=== PATIENT | male | born 1945 | race Caucasian/White ===

== ENCOUNTER → 2023-12-05 10:42 | Outpatient (REF) | payer OTHER, MEDICARE, SELFPAY ==
[2023-12-05 11:01] LABS: % Basophils 0.5 % (0-2); % Eosinophils 3.3 % (0-6); % Immature Granulocytes 0.3 % (0-0.5); % Lymphocytes 16.2 % (20.5-51.1); % Monocytes 10.6 % (1.7-9.3); % Neutrophils 69.1 % (42.2-75.2); Absolute Eosinophils 0.3 10^3/uL (0-0.7); Absolute Lymphocytes 1.4 10^3/uL (1.2-3.4); Absolute Monocytes 0.9 10^3/uL (0.1-0.6); Hematocrit 40.4 % (39.0-52.0); Hemoglobin 13.5 g/dL (13.0-18.0); Mean Corp Hgb Conc. 33.4 g/dL (33.0-37.0); Mean Corpuscular Volume 86.9 fL (80.0-94.0); Mean Platelet Volume 11.7 fL (7.4-10.4); Nucleated Red Blood Cells % 0 % (-); Platelet Count 322 10^3/uL (130-400); Red Blood Cell Count 4.65 10^6/uL (4.70-6.10); Red Cell Dist. Width 14.6 % (11.5-14.5); White Blood Cell Count 8.7 10^3/uL (4.8-10.8)
[2023-12-05 11:18] LABS: ALT (SGPT) 40 U/L (0-50); AST (SGOT) 39 U/L (17-59); Albumin 3.4 g/dl (3.5-5.0); Alkaline Phosphatase 117 U/L (38-126); Blood Urea Nitrogen 36 mg/dl (9-20); Calcium 9.3 mg/dl (8.4-10.2); Carbon Dioxide 26 mmol/L (22-30); Chloride 102 mmol/L (98-107); Glucose 88 mg/dl (70-99); Sodium 138 mmol/L (135-145); Total Bilirubin 0.7 mg/dl (0.2-1.3); Total Protein 6.3 g/dl (6.3-8.2); eGFR > 60.00
== END ==
LOC: OLABN 10:42
PROVIDERS: ATTENDING PHYSICIAN Student in an Organized Health Care Education/Training Program
DX: S09.90XA Unspecified injury of head, initial encounter (principal)
CPT/HCPCS: 36415; 80053; 83735; 85025

== ENCOUNTER 2023-12-08 16:59 | Emergency (ER) | payer MEDICARE, OTHER, SELFPAY ==
[2023-12-08] VITALS (7 sets, daily range): BP systolic 136–160; BP diastolic 56–87; BMI 25.7
[2023-12-08 17:22] LABS: % Basophils 0.3 % (0-2); % Eosinophils 0.3 % (0-6); % Immature Granulocytes 0.4 % (0-0.5); % Lymphocytes 10.7 % (20.5-51.1); % Neutrophils 80.3 % (42.2-75.2); Absolute Lymphocytes 1.1 10^3/uL (1.2-3.4); Absolute Monocytes 0.8 10^3/uL (0.1-0.6); Absolute Neutrophils 8.2 10^3/uL (1.4-6.5); Hemoglobin 14.6 g/dL (13.0-18.0); Mean Corp Hgb Conc. 34.8 g/dL (33.0-37.0); Mean Corpuscular Hgb 29.1 pg (27.0-31.0); Mean Corpuscular Volume 83.7 fL (80.0-94.0); Mean Platelet Volume 10.7 fL (7.4-10.4); Nucleated Red Blood Cells % 0 % (-); Platelet Count 336 10^3/uL (130-400); Red Blood Cell Count 5.02 10^6/uL (4.70-6.10); Red Cell Dist. Width 14.4 % (11.5-14.5); White Blood Cell Count 10.2 10^3/uL (4.8-10.8)
[2023-12-08 18:05] LABS: ALT (SGPT) 36 U/L (0-50); AST (SGOT) 35 U/L (17-59); Albumin 3.8 g/dl (3.5-5.0); Alkaline Phosphatase 125 U/L (38-126); Blood Urea Nitrogen 35 mg/dl (9-20); Calcium 9.9 mg/dl (8.4-10.2); Carbon Dioxide 24 mmol/L (22-30); Chloride 102 mmol/L (98-107); Estimated Creatinine Clearance 63 ml/min; Glucose 105 mg/dl (70-99); Potassium 5.8 mmol/L (3.5-5.1); Sodium 137 mmol/L (135-145); Total Bilirubin 0.8 mg/dl (0.2-1.3); Total Protein 7.1 g/dl (6.3-8.2); eGFR > 60.00
[2023-12-08 20:34] LABS: Urine Albumin Trace (Neg - Trace); Urine Bilirubin Negative (Negative); Urine Character Clear (Clear); Urine Color Yellow; Urine Glucose Negative (Negative); Urine Ketone 1+ (Negative); Urine Leukocyte Negative (Negative); Urine Nitrite Negative (Negative); Urine Occult Blood Negative (Negative); Urine Specific Gravity 1.015 (<1.030); Urine Urobilinogen Negative (Neg - 1+)
[2023-12-08 20:43] LABS: PT 25.2 Sec (11.4-14.6)
[2023-12-08 20:44] LABS: COVID-19 Antigen Negative (Negative)
[2023-12-08 20:44] LABS: APTT 41.1 Sec (23.4-35.0)
[2023-12-08 21:21] LABS: Blood Urea Nitrogen 34 mg/dl (9-20); Calcium 9.5 mg/dl (8.4-10.2); Carbon Dioxide 26 mmol/L (22-30); Chloride 102 mmol/L (98-107); Estimated Creatinine Clearance 63 ml/min; Glucose 101 mg/dl (70-99); Potassium 5.2 mmol/L (3.5-5.1); Sodium 138 mmol/L (135-145); eGFR > 60.00
--- NOTE | 2023-12-08 21:57 | ED.GENMED ---
History of Present Illness
General
Chief Complaint: Change in Mental Status
Source: records, family and ambulance crew
Time Seen by Provider: 12/08/23 19:47
Travel History
Have you had any contact with someone who has COVID-19?: No
Do you have any symptoms of coronavirus? Fever > 100 degrees, chills, cough, shortness of breath, sore throat, loss of taste or smell, muscle aches, or headache?: No
History of Present Illness
History of Present Illness:
78-year-old male with past medical history of dementia, hypertension, hyperlipidemia, recent accidental fall resulting in a subdural hemorrhage 3 weeks ago where patient was admitted at [facility] for 2 weeks, 1 week ago was
transferred to [facility], family notes today patient seemed to have a change in mental status noting that he was a little less conversive than normal, confused, was not opening his eyes during conversation with family concern for infection or
recurring intracranial bleeding. Family denies any fevers or infectious symptoms, cough, reports of abdominal pain, chest pain or any other concerns. Patient had been on Coumadin previously due to a prosthetic valve but was discontinued off of
this during his hospitalization but had the Coumadin restarted on November 28 and reportedly had an INR earlier this week of greater than 2. Unable to obtain much history from the patient secondary to his baseline dementia.
Past History
Past History
ED Past Medical History: HTN, Hypercholesterolemia and Valvular disease
ED Past Surgical History: Cardiac (St. Kunal's valve surgery)
Social History
Tobacco: Non-smoker
Alcohol: None
Drug: None
Personal:
Living: halfway
Employment: Retired
Phy Exam
Physical Exam
Physical Exam:
GENERAL: Sleepy but easily arousable to voice, will answer most questions but with only a yes or no response
Head: Dressing in place within the mid occipital scalp
EYE: clear conjunctiva
NECK: Supple,
ENT: o/p clr, mmm.
CARDIAC: Regular rate and rhythm with occasional skipped or aberrant beat confirmed with telemetry
LUNGS: Clear breath sounds bilaterally, no acute respiratory distress, no wheezes/rales/rhonchi
ABDOMEN: Soft, without focal tenderness, no r/g, no cvat
NEUROLOGICAL: Alert and oriented to person but not place nor time
SKIN: Warm and dry, skin intact.
MUSCULOSKELETAL: No edema, well perfused.
PSYCH: Normal and appropriate interaction.
Scores
Heart Failure Risk
Heart Failure Risk Score: Not Applicable
Heart Score for Chest Pain Patients
STEMI patient?: Not applicable
Withdrawal Assessment of Alcohol
Withdrawal Assessment Completed?: Not applicable
Course
Orders/Labs/Results
Orders:
Orders
12/08/23 17:10
EKG [Electrocardiogram (*1)] Urgent
Reason for Study: Bradycardia / Tachycardia
12/08/23 17:11
EKG- Treatment ONCE
12/08/23 17:15
CMP [Comprehensive Metabolic Panel] Urgent
Complete Blood Count/With Diff Urgent
PTT Urgent
Prothrombin Time Urgent
12/08/23 19:44
CT Head W/o Iv Contrast Urgent
Comment:
Reason For Exam: Change in mental status, subdural on 11/18
12/08/23 20:06
Straight cath- Treatment ONCE
12/08/23 20:07
CR Chest Portable - 1 View Urgent
Comment:
Reason For Exam: change in mental status
Reason Study Needs to be Portable: Unable to Transport
12/08/23 20:17
COVID-19 Antigen Urgent
Source: Nasal Swab
Influenza A+B Rapid Molecular Urgent
GOGO Source: Nasal Swab
Specimen Description:
12/08/23 20:18
Urinalysis Reflex To Culture Urgent
Date Specimen was Collected: 12/08/23
Time Specimen was Collected: 20:15
12/08/23 21:04
Basic Metabolic Panel Urgent
Abnormal Lab Results
12/08/23 12/08/23 12/08/23
17:15 20:18 21:04
MPV 10.7 H fL
(7.4-10.4)
Absolute Neuts (auto) 8.2 H 10^3/uL
(1.4-6.5)
Absolute Lymphs (auto) 1.1 L 10^3/uL
(1.2-3.4)
Absolute Monos (auto) 0.8 H 10^3/uL
(0.1-0.6)
Neutrophils % 80.3 H %
(42.2-75.2)
Lymphocytes % 10.7 L %
(20.5-51.1)
PT 25.2 H Sec
(11.4-14.6)
APTT 41.1 H Sec
(23.4-35.0)
Potassium 5.8 H mmol/L 5.2 H mmol/L
(3.5-5.1) (3.5-5.1)
BUN 35 H mg/dl 34 H mg/dl
(9-20) (9-20)
Glucose 105 H mg/dl 101 H mg/dl
(70-99) (70-99)
Urine Ketones 1+ A
(Negative)
12/08/23 17:15
12/08/23 21:04
Vital Signs
Initial and Last Documented VS:
Initial Vital Signs
BP
154/65
12/08/23 17:04
Last Documented Vital Signs
Temp Pulse Resp BP Pulse Ox
98.1 F 94 28 155/61 97
12/08/23 19:59 12/08/23 19:00 12/08/23 19:00 12/08/23 19:00 12/08/23 19:00
Director Skills consulted with Physician
Director Skills consulted with physician?: Yes
Name of Physician Consulted: Anthony
MDM/Problems Addressed
Differential Diagnosis Includes:
Recurring intracranial bleed, infectious etiology such as UTI or pneumonia, electrolyte disturbance, dehydration, delirium secondary to dementia/current place of living
MDM/Problems Addressed:
78-year-old male present emergency department for evaluation for reported change in mental status over the last 24 hours by family. Patient does seem to be somewhat conversive here and in no acute distress. Vital signs reassuring. There is no
fever. Given patient recently restarted Coumadin in the setting of recent head trauma and confirmed intracranial bleeding will send for stat CT to rule out worsening head bleed. Labs, urine and chest x-ray ordered. Will attempt to obtain records
from [place] to compare results with today's visit from his discharge
Chronic conditions affecting care: Neurological disorder
Acute Exacerbation and/or Progression of Chronic Illness: Neurological disorder
*Radiology
Radiology exam reviewed: radiology read reviewed
*Pulse Oximetry
Patient hypoxic: no
*EKG
Interpreted by ED Provider?: Yes
Comparison EKG: no changes
Heart Rate: 88
Rate: normal
Rhythm: sinus and PAC's
[place]: normal axis
Ischemia: no ischemia
*Social Services Aide Interpretation
Rate: normal
Rhythm: sinus and PAC's
*Critical Care Note
Total Time (30-74mins, 75-104mins- exclusive of procedures): Not Applicable
Data Reviewed
Review of Other/Old Records Reveals: Labs, Records, Radiology Studies and Discharge Summary
Source: records, family and ambulance crew
Patient Management
Escalation/DeEscalation of care consider admission/obs:
Patient's head CT shows moderate size left high parietal slightly low-attenuation extra-axial fluid collection measuring 1.2 cm likely representing subacute subdural hematoma. This is improved from patient's CT at [place] which showed a 1.4 cm
subdural hematoma in the same location. There is also bifrontal hematomas on that CT when patient was admitted at [place] from initial trauma. Patient's lab work was ultimately reassuring. Initial potassium came back elevated at 5.8 which I
suspect is likely hemolysis given no kidney injury. This was repeated and came back at 5.2. Patient's urine and chest x-ray without signs of infection. Ultimately I suspect a delirium secondary to patient being recently hospitalized as well as
being in a new environment. I reviewed all of these findings with the family and they do feel comfortable with patient going back to [facility] for continued rehab and care.
ED Attending Note
-
Portions of this chart may have been created with voice recognition software.� Occasional wrong word or��sound alike� substitutions may have occurred due to the inherent limitations of voice recognition software.
Discharge Plan
Departure
Patient Disposition: Longterm/SNF
Date of Disposition: 12/08/23
Time of Disposition: 21:57
Patient with high blood pressure during this ER visit?: Yes
Discharge Problem:
Altered mental status
Instructions: Dementia (DC)
Prescriptions:
No Action
metoprolol tartrate 50 MG tablet
50 mg PO BID
acetaminophen [Tylenol] 325 mg Tablet
650 mg PO Q4HPRN PRN (Reason: mild pain)
citalopram [Celexa] 10 mg Tablet
10 mg PO DAILY
warfarin 2.5 mg Tablet
5 mg PO QPM
rosuvastatin [Crestor] 40 mg Tablet
40 mg PO QPM
donepezil 23 mg Tablet
23 mg PO BID
amlodipine [Norvasc] 5 mg Tablet
5 mg PO QPM
acetaminophen [Tylenol Extra Strength] 500 mg Tablet
1,000 mg PO Q8H
spironolactone 25 mg Tablet
25 mg PO DAILY
magnesium hydroxide [Milk of Magnesia] 400 mg/5 mL Suspension
2,400 mg PO HSPRN PRN (Reason: CONSTIPATION)
bisacodyl [Dulcolax (bisacodyl)] 10 mg Suppository
10 mg [place] [id number] PRN (Reason: IF NO BM AFTR MOM)
aspirin 81 mg Tablet,Chewable
81 mg PO DAILY
losartan 100 mg Tablet
100 mg PO DAILY
Referrals:
Jules Narvaez MD [Family Provider] -
Interventions
Interventions:
*Risk Screen - Suicide Last Done: 12/08/23 17:09
*General Assessment Last Done: 12/08/23 17:19
*Neglect/Abuse Screening Last Done: 12/08/23 17:09
ED- Fall Risk Assessment Last Done: 12/08/23 17:08
*ED COVID-19 Vaccine History Last Done: 12/08/23 17:09
ED- Neurological Assessment Last Done: 12/08/23 17:17
[2023-12-09] VITALS: BP 152/68
[2023-12-09 01:00] VITALS: BP 152/72
== END 2023-12-09 01:58 ==
LOC: EMR 16:59
PROVIDERS: Physician Assistant Medical; EMERGENCY PHYSICIAN Emergency Medicine; FAMILY PHYSICIAN Family Medicine
DX: R41.82 Altered mental status, unspecified (principal); E78.00 Pure hypercholesterolemia, unspecified; I10 Essential (primary) hypertension; F03.90 Unspecified dementia, unspecified severity, without behavioral disturbance, psychotic disturbance, mood disturbance, and anxiety; Z79.01 Long term (current) use of anticoagulants
CPT/HCPCS: 99285; 70450; 71045; 80048; 80053; 81003; 85025; 85610; 85730; 87502; 87811; 93005

== ENCOUNTER 2023-12-17 18:21 | Inpatient (IN) | payer MEDICARE, OTHER, SELFPAY ==
[2023-12-17] VITALS (15 sets, daily range): BP systolic 78–107; BP diastolic 36–65
[2023-12-17 15:43] LABS: Glucose - Point of Care 85 mg/dl (70-99)
[2023-12-17] MEDS: NSS 1000 IV ×2 (15:51→20:54)
--- NOTE | 2023-12-17 16:25 | ED.GENMED ---
History of Present Illness
General
Chief Complaint: Change Level of Consciousness
Source: records
Exam Limitations: clinical condition
Time Seen by Provider: 12/17/23 15:21
Travel History
Have you had any contact with someone who has COVID-19?: Unable to Answer
Do you have any symptoms of coronavirus? Fever > 100 degrees, chills, cough, shortness of breath, sore throat, loss of taste or smell, muscle aches, or headache?: Unable to Answer
History of Present Illness
History of Present Illness:
78-year-old male sent for lethargy and hypotension. Patient denies any complaints. Recent history of subdural.
Past History
Past History
ED Past Medical History: HTN, Hypercholesterolemia and Valvular disease
ED Past Surgical History: Cardiac (St. Kunal's valve surgery)
Social History
Tobacco: Non-smoker
Alcohol: None
Drug: None
Personal:
Living: alf
Employment: Retired
Phy Exam
Physical Exam
Physical Exam:
GENERAL: Alert and oriented x 1 in no apparent distress. Elderly and frail. Well-healing scalp laceration with dressing
EYE: Orbits normal.
NECK: Supple, no significant adenopathy.
ENT: Pharynx without erythema
CARDIAC: Regular rate and rhythm without any obvious murmurs.
LUNGS: Clear breath sounds,normal
ABDOMEN: Soft, without focal tenderness or distention
NEUROLOGICAL: Alert and oriented x 1, grossly non-focal
SKIN: Warm and dry, no rash or lesion, no discoloration, skin intact.
MUSCULOSKELETAL: No edema,no deformity.Good color
PSYCH: Flat affect
Course
Orders/Labs/Results
Orders:
Orders
12/17/23 15:29
CT Head W/o Iv Contrast Urgent
Comment:
Reason For Exam: Change in mental status. Recent subdural
Cardiac Monitoring- Treatment ONCE
IV Insert/Care/Rem.- Treatment PRN
Straight cath- Treatment ONCE
Pulse Ox/cont/shift [RESP] Urgent
Quantity: 1
12/17/23 15:31
Electrocardiogram (*1) Urgent
Reason for Study: Other
Other Reason for Exam: sepsis
EKG- Treatment ONCE
12/17/23 15:46
0.9% Sodium Chloride 1000 ml [Nss] 1,000 ml IV BOLUS
12/17/23 16:06
CXR Port [CR Chest Portable - 1 View] Urgent
Comment:
Reason For Exam: hypotension
Reason Study Needs to be Portable: Unable to Transport
12/17/23 16:14
COVID-19 Antigen Urgent
Source: Nasal Swab
Urinalysis Reflex To Culture Urgent
Date Specimen was Collected: 12/17/23
Time Specimen was Collected: 15:38
Influenza A+B Rapid Molecular Urgent
GOGO Source: Nasal Swab
Specimen Description:
12/17/23 16:29
Complete Blood Count/With Diff Urgent
Comprehensive Metabolic Panel Urgent
Lactic Acid Q4H
Comment: CANCEL 2nd LACTIC ACID IF 1st LACTIC ACID IS LESS THAN 2
PTT Urgent
Prothrombin Time Urgent
Blood Culture Q30M
GOGO Source: Blood/Venous
Specimen Description:
12/17/23 17:08
MA [place] Wo Stat
Reason For Exam: MRA and MRV, any evidence sagital venous thrombus
Recent pill cam endoscopy?: No
MR Brain Without Contrast Stat
Comment: Clinical history makes PRES less likely
Reason For Exam: Acute infarct or venous thrombis eval
Recent pill cam endoscopy?: No
12/17/23 17:43
Admit/Transfer Patient As Directed
Co-Sign Provider:
Level of Care: Inpatient admission
Assign to:: ICU
Physician / Group: ladarius
Diagnosis: cva
Reason for Hospitalization: cva
Expected length of stay greater than two midnights?: Yes
ELOS- Estimated Length of Stay in days: 2
I certify the patient meets the requirements for IP care: Yes
Code Status As Directed
Resuscitation Status: Do not resuscitate
Reached after discussion with pt or family/Healthcare POA: Yes
12/17/23 17:44
DNR Bracelet Application ONCE
12/17/23 17:48
NIH Stroke Scale As Directed
Directions: Per protocol
12/17/23 17:54
Heparin Protocol- PTT Orders As Directed
PTT per Heparin protocol: -Obtain CBC and baseline PTT - if not already collected.
-Obtain PTT 6 hours from start of infusion. Then, every 6 hours until 2 consecutive
PTT's are therapeutic. Then, PTT Daily.
-With each rate change, obtain PTT every 6 hours until 2 consecutive PTT's are
therapeutic. Then, PTT Daily.
Notify MD As Directed
Notify physician if: PTT is greater than or equal to 200.
12/17/23 17:59
Abdomen/Pelvis wo Contrast CT [CT Abd/pelvis Wo Iv Cont] Urgent
Comment:
Reason For Exam: abdominal pain, hypotension
12/17/23 18:00
Heparin 78783 Units/250 ml 25,000 units in 250 ml IV PER PROTOCOL
Weight to be used for heparin protocol in kilograms (kg):: 88.6
Protocol:: Cardiac Tx/Acute Coronary
PTT Goal Range to be used:: PTT 73 to 111 seconds
Order type:: Initial
INITIAL Infusion Dose (UNITS/KG/hr) & then follow protocol:: 12 units/kg/hr
Infusion Dose in UNITS/hr & then follow protocol (UNITS/hr):: 1,000
INFUSION RATE in mL/hr & then follow protocol (mL/hr):: 10
PTT less than or equal to 64 seconds:: Increase rate by 200 units/hr (+ 2 mL/hr)
PTT 64.1 to 72.9 seconds:: Increase rate by 100 units/hr (+ 1 mL/hr)
PTT 73 to 111 seconds:: Target Range. No change in rate.
PTT 111.1 to 130.9 seconds:: Decrease rate by 100 units/hr (- 1 mL/hr)
PTT 131 to 199.9 seconds:: HOLD for 1 hr. Then decrease rate by 200 units/hr (- 2 mL/hr)
PTT greater than or equal to 200 seconds:: HOLD for 2 hrs & Notify Provider. Then decrease by 200 units/hr (-
2 mL/hr)
Lab follow-up:: Each change, PTT q6h until 2 consecutive are therapeutic. Then PTT
daily.
12/17/23 19:41
Lactic Acid Q4H
Comment: CANCEL 2nd LACTIC ACID IF 1st LACTIC ACID IS LESS THAN 2
Blood Culture Q30M
GOGO Source: Blood/Venous
Specimen Description:
12/19/23 06:00
Complete Blood Count/No Diff Q2D
Comment: Notify MD if platelet count is <130,000 or decreases by 50% from baseline
12/21/23 06:00
Complete Blood Count/No Diff Q2D
Comment: Notify MD if platelet count is <130,000 or decreases by 50% from baseline
12/23/23 06:00
Complete Blood Count/No Diff Q2D
Comment: Notify MD if platelet count is <130,000 or decreases by 50% from baseline
12/25/23 06:00
Complete Blood Count/No Diff Q2D
Comment: Notify MD if platelet count is <130,000 or decreases by 50% from baseline
12/27/23 06:00
Complete Blood Count/No Diff Q2D
Comment: Notify MD if platelet count is <130,000 or decreases by 50% from baseline
12/29/23 06:00
Complete Blood Count/No Diff Q2D
Comment: Notify MD if platelet count is <130,000 or decreases by 50% from baseline
12/31/23 06:00
Complete Blood Count/No Diff Q2D
Comment: Notify MD if platelet count is <130,000 or decreases by 50% from baseline
01/02/24 06:00
Complete Blood Count/No Diff Q2D
Comment: Notify MD if platelet count is <130,000 or decreases by 50% from baseline
Abnormal Lab Results
12/17/23
16:29
RBC 4.46 L 10^6/uL
(4.70-6.10)
Hgb 12.9 L g/dL
(13.0-18.0)
Hct 38.3 L %
(39.0-52.0)
MPV 11.2 H fL
(7.4-10.4)
Absolute Monos (auto) 1.0 H 10^3/uL
(0.1-0.6)
Lymphocytes % 14.3 L %
(20.5-51.1)
Monocytes % 12.2 H %
(1.7-9.3)
PT 20.3 H Sec
(11.4-14.6)
Sodium 134 L mmol/L
(135-145)
BUN 51 H mg/dl
(9-20)
Creatinine 1.8 H mg/dL
(0.7-1.3)
Lactic Acid 3.0 H mmol/L
(0.7-2.0)
Albumin 3.4 L g/dl
(3.5-5.0)
12/17/23 17:54
12/17/23 16:29
Vital Signs
Initial and Last Documented VS:
Initial Vital Signs
Temp Pulse Resp BP Pulse Ox
99.1 F 81 19 101/65 99
12/17/23 15:28 12/17/23 15:28 12/17/23 15:28 12/17/23 15:28 12/17/23 15:28
Last Documented Vital Signs
Temp Pulse Resp BP Pulse Ox
99.1 F 77 24 96/55 100
12/17/23 15:28 12/17/23 19:30 12/17/23 19:30 12/17/23 19:30 12/17/23 17:15
MDM/Problems Addressed
Differential Diagnosis Includes:
Patient with lethargy and hypotension. No other focal symptoms without cough congestion fever abdominal pain chest pain etc. Workup for sepsis cardiac etiology. Patient's was contacted.
*Pulse Oximetry
Patient hypoxic: no
*EKG
Interpreted by ED Provider?: Yes
Interpretation: abnormal
Comparison EKG: changes noted
Heart Rate: 78
Rate: normal
Rhythm: sinus and sinus arrhythmia
[place]: left axis deviation
Interval: normal interval
QRS Pattern: normal QRS
Ischemia: non-specific ST changes
*Drafting Teacher Interpretation
Rate: normal
Interpretation: normal
Heart Rate: 82
Rhythm: sinus
*Critical Care Note
Total Time (30-74mins, 75-104mins- exclusive of procedures): Not Applicable
Data Reviewed
Review of Other/Old Records Reveals: Labs, Records, Radiology Studies, Testing and Discharge Summary
Update Note
Update Note:
Patient with possible acute or subacute stroke by CT. Does not explain hypotension. No obvious sepsis issues. Referred to hospitalist. Neurology involved.
ED Attending Note
-
Portions of this chart may have been created with voice recognition software.� Occasional wrong word or��sound alike� substitutions may have occurred due to the inherent limitations of voice recognition software.
Discharge Plan
Departure
Patient Disposition: Admit
Date of Disposition: 12/17/23
Time of Disposition: 17:25
Presentation/result/management discussed w/ accepting MD/DO: Neurology
Discharge Problem:
Lethargy/possible transcortical infarct , Hypotension
Interventions
Interventions:
*Risk Screen - Suicide Last Done: 12/17/23 15:28
*General Assessment Last Done: 12/17/23 15:28
*Neglect/Abuse Screening Last Done: 12/17/23 15:28
ED- Fall Risk Assessment Last Done: 12/17/23 15:57
*ED COVID-19 Vaccine History Last Done: 12/17/23 15:55
ED- Cardiac Assessment Last Done: 12/17/23 15:57
ED- Neurological Assessment Last Done: 12/17/23 15:57
ED-Psychological Assessment Last Done: 12/17/23 15:57
ED- Pulmonary Assessment Last Done: 12/17/23 15:57
[2023-12-17 16:35] LABS: % Basophils 0.2 % (0-2); % Eosinophils 3.1 % (0-6); % Immature Granulocytes 0.4 % (0-0.5); % Lymphocytes 14.3 % (20.5-51.1); % Monocytes 12.2 % (1.7-9.3); % Neutrophils 69.8 % (42.2-75.2); Absolute Eosinophils 0.3 10^3/uL (0-0.7); Absolute Lymphocytes 1.2 10^3/uL (1.2-3.4); Absolute Neutrophils 5.6 10^3/uL (1.4-6.5); Hematocrit 38.3 % (39.0-52.0); Hemoglobin 12.9 g/dL (13.0-18.0); Mean Corp Hgb Conc. 33.7 g/dL (33.0-37.0); Mean Corpuscular Hgb 28.9 pg (27.0-31.0); Mean Corpuscular Volume 85.9 fL (80.0-94.0); Mean Platelet Volume 11.2 fL (7.4-10.4); Nucleated Red Blood Cells % 0 % (-); Platelet Count 268 10^3/uL (130-400); Red Blood Cell Count 4.46 10^6/uL (4.70-6.10); Red Cell Dist. Width 14.5 % (11.5-14.5)
[2023-12-17 16:44] LABS: Urine Albumin Trace (Neg - Trace); Urine Bilirubin Negative (Negative); Urine Character Clear (Clear); Urine Color Yellow; Urine Glucose Negative (Negative); Urine Ketone Negative (Negative); Urine Leukocyte Negative (Negative); Urine Nitrite Negative (Negative); Urine Occult Blood Negative (Negative); Urine Specific Gravity 1.015 (<1.030); Urine Urobilinogen Negative (Neg - 1+)
[2023-12-17 16:44] LABS: APTT 32.8 Sec (23.4-35.0); INR 1.76; PT 20.3 Sec (11.4-14.6)
[2023-12-17 16:52] LABS: ALT (SGPT) 47 U/L (0-50); AST (SGOT) 45 U/L (17-59); Albumin 3.4 g/dl (3.5-5.0); Alkaline Phosphatase 113 U/L (38-126); Blood Urea Nitrogen 51 mg/dl (9-20); Calcium 8.9 mg/dl (8.4-10.2); Carbon Dioxide 23 mmol/L (22-30); Chloride 107 mmol/L (98-107); Glucose 85 mg/dl (70-99); Potassium 4.6 mmol/L (3.5-5.1); Sodium 134 mmol/L (135-145); Total Bilirubin 0.8 mg/dl (0.2-1.3); Total Protein 6.4 g/dl (6.3-8.2); eGFR 37.82
[2023-12-17 16:59] LABS: COVID-19 Antigen Negative (Negative)
--- NOTE | 2023-12-17 17:54 | HPS.HSE ---
Family Physician
-
Family Physician: * NONE
Chief Complaint
-
altered mental status, hypotension
History of Present Illness
78-year-old male past medical history of dementia, recent subdural hematoma, mechanical aortic valve replacement on Coumadin, hypertension, hypercholesteremia, presenting with lethargy and hypotension noted at [facility] today. Lethargy was
apparently acute in onset. Patient has dementia and is AAO x1 at baseline. history is obtained from patient's .
Patient recently had a fall 9 days ago and had a CT scan which showed subdural hematoma. Patient was continued on Coumadin due to his mechanical aortic valve.
states that patient may not have been taking his Coumadin over the past few days because he has been refusing them. His Coumadin is managed by Dr. Locke.
Patient's only complaint is abdominal pain. Unclear when last bowel movement was. Patient denies any headache, blurry vision, neck pain, fevers or chills, focal weakness or numbness or tingling.
Patient was started on doxycycline 2 to 3 days ago for head laceration.
Medical History
Past Medical History
Past Medical History: Reports Other ( dementia, recent subdural hematoma, mechanical aortic valve replacement on Coumadin, hypertension, hypercholesteremia, )
Past Surgical History: Reports None
Social History
Tobacco: Non-smoker
Alcohol: None
Drug: None
Family History
Family History: Not pertinent
Allergies / Home Medications
Allergies reflects when Allergies were last updated in [employer].
Home Medications with original date entered in [employer]
Allergy/Medication List:
Allergies
Allergy/AdvReac Type Severity Reaction Status Date / Time
No Known Allergies Allergy Verified 12/17/23 15:36
Home Medications
metoprolol tartrate 50 mg tablet 50 mg PO BID@0830,1830 Arrhythmia 09/18/16
acetaminophen 325 mg tablet (Tylenol) 650 mg PO Q4HPRN PRN mild pain/fever>100.4 02/16/23
citalopram 10 mg tablet (Celexa) 10 mg PO DAILY@829 Mental Health/Anxiety 02/16/23
donepezil 23 mg tablet 23 mg PO DAILY@829 Neurological Condition 02/16/23
rosuvastatin 40 mg tablet (Crestor) 40 mg PO DAILY@1829 High cholesterol 02/16/23
amlodipine 5 mg tablet (Norvasc) 5 mg PO DAILY@182912/08/23
aspirin 81 mg chewable tablet 81 mg PO DAILY@82912/08/23
bisacodyl 10 mg rectal suppository (Dulcolax (bisacodyl)) 10 mg [place] DAILYPRN PRN q 3 days when no BM and MOM/lactulose ineffective 12/08/23
losartan 100 mg tablet 100 mg PO DAILY@82912/08/23
magnesium hydroxide 400 mg/5 mL oral suspension (Milk of Magnesia) 2,400 mg PO HSPRN PRN CONSTIPATION 12/08/23
spironolactone 25 mg tablet 25 mg PO DAILY@82912/08/23
Saccharomyces boulardii 250 mg capsule (Probiotic (S.boulardii)) 250 mg PO DAILY@82912/17/23
doxycycline hyclate 100 mg capsule 100 mg PO BID@829,182912/17/23
olanzapine 2.5 mg tablet 2.5 mg PO DAILY@82912/17/23
warfarin 5 mg tablet 5 mg PO DAILY@182912/17/23
Review of Systems
-
History Source: Patient
A 12 point ROS was completed and negative except as noted: Yes
Constitutional: Reports No Symptoms
EENT: Reports No Symptoms
Respiratory: Reports No Symptoms
Cardiac: Reports No Symptoms
Abdomen/GI: Reports No Symptoms
: Reports No Symptoms
Musculoskeletal: Reports No Symptoms
Skin: Reports No Symptoms
Neurological: Reports No Symptoms
Endocrine: Reports No Symptoms
Hematologic/Lymphatic: Reports No Symptoms
Psych: Reports No Symptoms
Physical Exam
Vital Signs
Vital Signs
Temp Pulse Resp BP Pulse Ox
99.1 F 80 11 89/49 100
12/17/23 15:28 12/17/23 17:30 12/17/23 17:30 12/17/23 17:30 12/17/23 17:15
Physical Exam
General: Well Developed, Well Nourished and No Apparent Distress
HEENT: NormoCephalic, Moist mucous membranes and Atraumatic
Respiratory: Clear
Cardiac: S1/S2 and Regular Rhythm; No Murmur or Rub
GI: Soft, Non Tender, Non Distended and Normal Bowel Sounds; No Organomegaly
Rectal: Deferred by Provider
Musculoskeletal: No Clubbing, No Cyanosis and No Edema
Skin: No Rash
Neuro: Nonfocal/grossly intact
Laboratory Results
-
12/17/23 16:29
12/17/23 16:29
Laboratory Results
PT 20.3 Sec (11.4-14.6) H 12/17/23 16:29
INR 1.76 12/17/23 16:29
APTT 32.8 Sec (23.4-35.0) 12/17/23 16:29
Lactic Acid 3.0 mmol/L (0.7-2.0) H 12/17/23 16:29
Total Bilirubin 0.8 mg/dl (0.2-1.3) 12/17/23 16:29
AST 45 U/L (17-59) 12/17/23 16:29
ALT 47 U/L (0-50) 12/17/23 16:29
Alkaline Phosphatase 113 U/L (38-126) 12/17/23 16:29
Data Reviewed
-
Lab Data: Labs Reviewed by me
Old Records: Reviewed
Impression/Plan
-
IMPRESSION:
PLAN:
# Hypotension/altered mental status
-Patient AAO x 1, quite alert on examination which appears to be his baseline, without meningeal signs or fever to suggest meningitis/encephalitis
-Neurological examination without focal deficits
-Does not meet sepsis criteria
-Urinalysis negative
-IV fluids
-Hold antihypertensive medication
-Lactic acid 3, continue to trend
-Check blood cultures
-Check TSH, a.m. cortisol
# Acute kidney injury prerenal
-Monitor with IV fluids
# New large region of cytotoxic edema in the left parietal/subdural/posterior temporal lobes and right parietal lobe likely CVA
# Small to moderate subacute subdural hematomas
-Diagnostic possibilities include large acute ischemic transcortical infarcts, acute cerebral venous infarctions, posterior reversible encephalopathy syndrome or severe infectious/inflammatory cerebritis
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
-Neurochecks/NIH checks per stroke protocol
-Continue aspirin
-Heparin drip without bolus although risk of worsening subdural hematoma
-Check MRI/MRA brain
# Mechanical aortic valve
# Subtherapeutic INR
-Hold Coumadin
-Heparin drip
-Managed by Dr. Locke
# Scalp laceration due to recent fall
-Started on doxycycline 2 to 3 days ago
# Abdominal pain
-Tender to palpation lower quadrants
-Check CT abdomen pelvis without IV contrast
Essential hypertension
-Hold amlodipine, losartan, metoprolol, spironolactone
Dementia
-Continue donepezil
-Continue citalopram
-Continue olanzapine
Hypercholesterolemia
-Continue statin
DNR/DNI
DVT prophylaxis�heparin drip
Regular diet
[2023-12-17] MEDS: HEPARIN 25000 UNITS/250 ML IV (19:41)
[2023-12-17 20:05] LABS: Lactic Acid 1.4 mmol/L (0.7-2.0)
[2023-12-17] MEDS: VIBRAMYCIN 100 MG PO (22:33)
[2023-12-17] MEDS: CRESTOR 40 MG PO (22:33)
--- NOTE | 2023-12-17 22:59 | PTCARENOTE ---
Received patient from ED on heparin gtt, oriented to self, disoriented to place, time, and situation (baseline). Neuro checks WNL. Following commands, complaining of pain at right AC IV site. Removed right AC and left hand IV (prehospital site). IV
team to bedside, left midline placed. NIH of 3, unable to assess accurately as patient has dementia at baseline. Normal sinus, 70s-80s. BP stable, 110s/50s. Palpable radial and pedal pulses bilaterally. Trace generalized anasarca. 97% on room air,
clear lung sounds anteriorly, diminished lung sounds at the bases. Abdomen soft, round, hypoactive bowel sounds. Condom cath applied, putting out yellow urine. Bruising throughout abdomen present on admission. Foam on head from scalp laceration,
fall 9 days ago, CDI. Hourly rounding and patient safety checks ongoing.
[2023-12-17 23:37] LABS: TSH 1.31 uIU/ml (0.47-4.68)
--- NOTE | 2023-12-17 23:56 | PTCARENOTE ---
Patient assessment unchanged from previous, hourly rounding and patient safety/neuro checks ongoing.
[2023-12-18] VITALS (22 sets, daily range): BP systolic 96–137; BP diastolic 49–114
[2023-12-18 01:59] LABS: APTT 87.5 Sec (23.4-35.0)
[2023-12-18 04:37] LABS: % Basophils 0.4 % (0-2); % Eosinophils 4.4 % (0-6); % Immature Granulocytes 0.4 % (0-0.5); % Lymphocytes 19.1 % (20.5-51.1); % Neutrophils 64.7 % (42.2-75.2); Absolute Eosinophils 0.3 10^3/uL (0-0.7); Absolute Lymphocytes 1.4 10^3/uL (1.2-3.4); Absolute Monocytes 0.8 10^3/uL (0.1-0.6); Absolute Neutrophils 4.8 10^3/uL (1.4-6.5); Hematocrit 35.4 % (39.0-52.0); Hemoglobin 11.7 g/dL (13.0-18.0); Mean Corp Hgb Conc. 33.1 g/dL (33.0-37.0); Mean Corpuscular Hgb 28.4 pg (27.0-31.0); Mean Corpuscular Volume 85.9 fL (80.0-94.0); Nucleated Red Blood Cells % 0 % (-); Platelet Count 207 10^3/uL (130-400); Red Blood Cell Count 4.12 10^6/uL (4.70-6.10); Red Cell Dist. Width 14.5 % (11.5-14.5); White Blood Cell Count 7.5 10^3/uL (4.8-10.8)
[2023-12-18 05:03] LABS: ALT (SGPT) 42 U/L (0-50); AST (SGOT) 41 U/L (17-59); Albumin 2.9 g/dl (3.5-5.0); Alkaline Phosphatase 106 U/L (38-126); Blood Urea Nitrogen 41 mg/dl (9-20); Calcium 8.5 mg/dl (8.4-10.2); Carbon Dioxide 23 mmol/L (22-30); Chloride 111 mmol/L (98-107); Glucose 91 mg/dl (70-99); Magnesium 1.8 mg/dl (1.6-2.3); Potassium 4.3 mmol/L (3.5-5.1); Sodium 138 mmol/L (135-145); Total Bilirubin 0.7 mg/dl (0.2-1.3); Total Protein 5.7 g/dl (6.3-8.2); eGFR 55.88
--- NOTE | 2023-12-18 05:20 | PTCARENOTE ---
Patient assessment unchanged from previous. Labs sent, repositioned, pulled up in bed. Hourly rounding and patient safety/neuro checks ongoing.
[2023-12-18 05:31] LABS: Cortisol, Random 9.1 ug/dl
[2023-12-18] MEDS: NSS 1000 IV ×2 (06:28→17:18)
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
--- NOTE | 2023-12-18 08:00 | PTCARENOTE ---
Received pt. @ change of shift. Drowsy, awakens to verbal/tactile stimuli. Oriented to self/situation, required reorientation to time. NIH increased from 3 to 6- see flow sheet. Pupils pinpoint. Dr. Sandoval aware of NIH increase/pupils, no further
orders. Also confirmed w Dr. Sandoval to cont on heparin gtt, titrated per orders- see flow sheet. Sinus arrhythmia on monitor. SpO2 99% on RA. +BS, abd soft/round/obese. Inc b/b. #[address] draining yellow urine. L midline in place w heparin
gtt and IVF. #22 R wrist patent, dressing c/d/i. Pt. able to shift weight in bed/ assist w repositioning. Bed alarm active.
--- NOTE | 2023-12-18 08:58 | W.PN.HOSP.TC ---
Today's Communication/Plan
-
see bold
Assessment / Plan
Assessment / Plan
Gen: NAD, AAOx1.
Eyes: EOMI, pin point pupils, no scleral icterus.
Neck: supple.
CV: irreg/irreg, normal S1, loud S2, no m/r/g.
Resp: CTAB, no rales, wheezes, or rhonchi.
Abd: +BS, soft, NT, ND
Skin: No rashes.
Neuro: CN 2-12 intact, non-focal.
Psych: Normal mood and affect.
MRI brain: Focal areas of abnormal restricted diffusion involving the posterior aspect of bilateral cerebral hemispheres, as described, appearance compatible with regions of acute to subacute infarction. Bilateral subdural hematomas, subacute to
chronic, left and right. Small hematomas within the inferior frontal lobes, with peripheral hemosiderin rims, which is likely related to previous stress-related injury. There is increased T2 and FLAIR signal within the white matter of the inferior
frontal lobes, which is also related to previous stress-related injury.
MRA head: Mild to moderate motion artifact, limiting evaluation. On MR arteriography, there is no evidence for significant focal stenosis. 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
hypoplasia as normal variation. No evidence of filling defect to suggest thrombus.
CT A/P: Mild distention of the gallbladder with no evidence for calcified gallstones. No CT findings that would be considered highly suggestive of acute cholecystitis. Stable small hepatic cysts present. Small benign dystrophic calcifications within
the right lobe of the liver. Moderate enlargement of the prostate gland, extending into the base of the bladder. Bony degenerative changes
Hypotension/altered mental status:
-On admission, pt AAO x 1, quite alert which appears to be his baseline, without meningeal signs or fever to suggest meningitis/encephalitis. Neurological examination on admission without focal deficits.
-Urinalysis negative
-neuro following
-cont IVFs
-Holding home antihypertensive medications
-Lactic acidosis, POA, resolved with IVFs
-unclear why BCxs were ordered but will follow
-TSH and fasting cortisol normal
ABHISHEK:
-prerenal, improving with IVFs
New large region of cytotoxic edema in the left parietal/subdural/posterior temporal lobes and right parietal lobe likely CVA, Small to moderate subacute subdural hematomas:
-MRI brain above, notable for bilateral posterior cerebral areas of acute to subacute infarction, bilateral subacute to chronic subdural hematomas, small hematomas within the inferior lobes likely due to previous stress related injury
-Diagnostic possibilities include large acute ischemic transcortical infarcts, acute cerebral venous infarctions, posterior reversible encephalopathy syndrome or severe infectious/inflammatory cerebritis
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
-Neurochecks/NIH checks per stroke protocol
-Continue aspirin
-cont Heparin drip without bolus although risk of worsening subdural hematoma
-Check MRI/MRA brain
h/o Mechanical AV:
-subtherapeutic INR
-Holding Coumadin
-cont Heparin drip
Other problems:
Scalp laceration due to recent fall: Started on doxycycline 2 to 3 days [employer]
Abdominal pain: CT A/P unremarkable as above
Essential hypertension: Holding home amlodipine, losartan, metoprolol, spironolactone
Dementia: cont donepezil/citalopram/olanzapine
Hypercholesterolemia: Continue statin
DNR/DNI
Heparin drip
Anticipated Discharge: 24 - 48 hours
Subjective/Interval History
-
Date of Service: December 18, 2023
Denies CP/SOB/abd pain.
Objective Data
-
Labs:
Laboratory Results
12/18/23 12/18/23 12/18/23
01:40 04:24 08:37
WBC 7.5
Hgb 11.7 L
Hct 35.4 L
Plt Count 207 D
APTT 87.5 H Pending
Sodium 138
Potassium 4.3
Chloride 111 H
Carbon Dioxide 23
BUN 41 H
Creatinine 1.3
Glucose 91
Calcium 8.5
Total Bilirubin 0.7
AST 41
ALT 42
Alkaline Phosphatase 106
Vital Signs:
Vital Signs
Temp Pulse Resp BP Pulse Ox
97.7 F 73 14 97/59 98
12/18/23 03:42 12/18/23 06:15 12/18/23 06:15 12/18/23 06:00 12/18/23 06:15
I&O
12/17/23 12/18/23 12/19/23
06:59 06:59 06:59
Intake Total 990 / 1100 220 / 220
Output Total 350 / 350
Balance 640 / 750 220 / 220
[2023-12-18] MEDS: CELEXA 10 MG PO (09:09)
[2023-12-18] MEDS: VIBRAMYCIN 100 MG PO ×2 (09:10→19:28)
[2023-12-18] MEDS: LOW STRENGTH ASPIRIN 81 MG PO (09:10)
[2023-12-18] MEDS: FLORASTOR 250 MG PO (09:10)
[2023-12-18] MEDS: ZYPREXA 2.5 MG PO (09:10)
--- NOTE | 2023-12-18 12:03 | CON.INTV ---
Addendum entered and electronically signed by Ira Echeverria MD 12/18/23 13:38:
Patient transferred out of ICU.
We will sign off. Please call with questions
Original Note:
Consultation
Consultation Request
Date/Time Consultation Requested: 12/18
Date/Time Consultation Performed: 12/18
Reason for Consultation: Critical care
Medical History
-
History of Present Illness:
History primarily obtained from the chart. Some history obtained from the patient but patient has dementia. He is a 78-year-old male with history of dementia, hypertension with recent fall approximately mid October hospitalized at [place] [facility] for 2 weeks found to have subdural hematoma. Patient did have mental status changes on 12/08/2023 brought to [facility]. At that time, per ED records, patient had a head CT which showed subacute subdural hematoma overall improved.
Patient was discharged back to [facility]. He returns to [facility] 12/17 with change in mental status and hypotension. Upon arrival, temperature 99.1, pulse 81, breathing at 19, blood pressure 101/65, 99%. Imaging suggested acute versus
subacute stroke. Patient was admitted to ICU for further management 12/18/2023
.
PMH: Hypertension, hypercholesterolemia, valvular disease with history of aortic valve surgery on chronic anticoagulation, history of subdural hematoma hospitalized at [place] October 2023
Past Medical History
Past Medical History: None (See above)
Past Surgical History: None (See above)
Social History
Tobacco: Non-smoker
Alcohol: None
Drug: None
Personal:
Living: Correction
Employment: Retired
Family History
Family History: Reviewed & Not Pertinent
Allergies / Home Medications
Allergies
Allergy/AdvReac Type Severity Reaction Status Date / Time
No Known Allergies Allergy Verified 12/17/23 15:36
Home Medications
Medication Instructions Recorded Confirmed Last Taken Type
metoprolol tartrate 50 mg tablet 50 mg PO BID@0830,1830 Arrhythmia 11/21/16 02/19/24 04/21/23 History
acetaminophen 325 mg tablet 650 mg PO Q4HPRN PRN mild 02/16/23 12/17/23 02/15/23 History
(Tylenol) pain/fever>100.4
citalopram 10 mg tablet (Celexa) 10 mg PO DAILY@0830 Mental 02/16/23 12/17/23 02/16/23 History
Health/Anxiety
donepezil 23 mg tablet 23 mg PO DAILY@0830 Neurological 02/16/23 12/17/23 02/15/23 History
Condition
rosuvastatin 40 mg tablet (Crestor) 40 mg PO DAILY@1830 High 02/16/23 12/17/23 Unknown History
cholesterol
amlodipine 5 mg tablet (Norvasc) 5 mg PO DAILY@1830 blood pressure 12/08/23 12/17/23 Unknown History
aspirin 81 mg chewable tablet 81 mg PO DAILY@0830 Blood Clot 12/08/23 12/17/23 Unknown History
Prevention/Tx
bisacodyl 10 mg rectal suppository 10 mg LA DAILYPRN PRN q 3 days 12/08/23 12/17/23 Unknown History
(Dulcolax (bisacodyl)) when no BM and MOM/lactulose
ineffective
losartan 100 mg tablet 100 mg PO DAILY@0830 blood pressure 12/08/23 12/17/23 Unknown History
magnesium hydroxide 400 mg/5 mL 2,400 mg PO HSPRN PRN CONSTIPATION 12/08/23 12/17/23 Unknown History
oral suspension (Milk of Magnesia)
spironolactone 25 mg tablet 25 mg PO DAILY@0830 Fluid 12/08/23 12/17/23 Unknown History
Retention/Swelling
Saccharomyces boulardii 250 mg 250 mg PO DAILY@0830 probiotic 12/17/23 12/17/23 Unknown History
capsule (Probiotic (S.boulardii))
doxycycline hyclate 100 mg capsule 100 mg PO BID@0830,1830 infection 12/17/23 12/17/23 Unknown History
olanzapine 2.5 mg tablet 2.5 mg PO DAILY@0830 Mental 12/17/23 12/17/23 Unknown History
Health/Anxiety
warfarin 5 mg tablet 5 mg PO DAILY@1830 Blood Clot 12/17/23 12/17/23 Unknown History
Prevention/Tx
Review of Systems
-
Unable to Obtain full review of systems at this time due to: Acuity
Vitals / Labs / Diagnostic Testing
Vital Signs
Temp Pulse Resp BP Pulse Ox
97.7 F 75 15 122/60 100
12/18/23 03:42 12/18/23 11:00 12/18/23 11:00 12/18/23 11:00 12/18/23 11:00
Lab Data
12/18/23 04:24
12/18/23 04:24
Laboratory Results
12/17/23 12/17/23 12/18/23
16:29 17:54 01:40
PT 20.3 H
INR 1.76
APTT 32.8 Cancelled 87.5 H
12/18/23
08:37
PT
INR
APTT 114.0 H
Microbiology
12/17/23 16:14 Nasal Swab Influenza Types A & B (BEN) - Final
Negative for Influenza A & B, NAAT
Negative results must be combined with clinical observations
and patient history.
Nucleic Acid Amplification test (NAAT)performed on the
[employer] platform.
Diagnostic Testing:
Physical Exam
-
HEENT: Normocephalic, Anicteric and Other (Posterior scalp laceration with dressing)
Cardiovascular: S1/S2, Regular Rhythm, Murmur (n) and Peripheral Edema (n)
Respiratory: Wheeze (n), Rales (n), Rhonchi (n) and Other (Poor inspiratory effort)
GI: Soft, Non Distended and Non Tender
Neurology: Awake, Other (Moves all extremities, follows commands. Disoriented, answers name when asked about location and year) and Other (Pupils are equal)
Skin: Other (No clubbing, cyanosis)
General: Comfortable
Assessment
-
78-year-old male with history of recent fall with subdural hematoma hospitalized at [place] in October 2023, presents with hypotension, change in mental status. Imaging suggested subacute versus acute posterior temporal and right parietal stroke
with cytotoxic edema. Patient found to be subtherapeutic with Coumadin, history of mechanical valve. Admitted to ICU for further management 12/18/23
Change in mental status
Status post acute ischemic stroke, bilateral
Suspected embolic phenomena
Recent fall with subdural hematoma, October 2023
Hospitalized for 2 weeks at [place]
Dementia
Mechanical aortic valve
On Coumadin therapy, subtherapeutic
Patient apparently noncompliant with dosing intermittently
group home resident
DNR
Plan/recommendations
At this time, patient is critically ill. Hypotension noted, now improved. Maps around 70-75
Patient is moving all extremities, and age ranges between 3 and 6
Patient answer his name when asked questions but does follow commands
Imaging reviewed
Moving forward
Continue with supportive care. Remains on heparin drip at this time, PTT therapeutic
Coumadin is being held.
Continue with IV fluids
Patient would be considered aspiration risk
Advance diet as able with precautions
Patient remains on doxycycline, low threshold to discontinue. Scalp laceration with dressing in place
Random cortisol noted, at this time, blood pressure is improved
Follow clinically
DNR status noted
Reviewed with critical care nursing, respiratory care, pharmacy
TCCT 31 min
--- NOTE | 2023-12-18 12:19 | CM ---
CM following re: discharge planning.
Discussed in Rounds, reviewed pt's chart, met with pt and spoke to admissions departmental buyer at [facility]
Pt is a 78 year old male, admitted with primary dx of Acute stroke.
Pt is not a great historian. per [facility] admissions department, pt is a senior living care resident at [facility], private paid bed hold, has supportive spouse, requires i person to assist with transferring, w/c bound and mostly spends time on recliner chair.
Per [facility] admissions department patient access representative, pt will be accepted back when medically stable.
D/C plan: return back to [facility] for a senior living care.
CM will follow with discharge plan updates as hospitalization progresses
--- NOTE | 2023-12-18 13:39 | PTCARENOTE ---
Contacted Dr. Sandoval regarding NIH/neuro checks frequency, orders changed to complete NIH/neuro check Qshift and with changes- see flow sheet. Pt.'s @ bedside, updated on plan of care.
[2023-12-18 15:36] LABS: APTT 118.5 Sec (23.4-35.0)
[2023-12-18] MEDS: CRESTOR 40 MG PO (17:18)
--- NOTE | 2023-12-18 17:38 | PTCARENOTE ---
Assisted pt. OOB to chair x2 w RW for dinner. Unsteady gait, deconditioned, required mx prompts. Tolerating chair position. Minimal interest in dinner, attempted to feed but pt spit out bite of food. Very poor appetite. IVF and heparin gtt
remain infusing through L midline. Chair alarm active. Pt. instructed on how to report care concerns and call ramirez in reach.
--- NOTE | 2023-12-18 20:10 | PTCARENOTE ---
Received patient in chair, following commands, denying pain, DAVIS, oriented to self, not oriented to place, time, or situation. Patient requests to stay in chair at this time. Chair alarm on. Drowsy and forgetful. NIH 6, slight drift in lower
extremities bilaterally, unable to properly read sentences or identify objects. Sinus arrhythmia, 70s-80s. BP stable, 120s/60s. Palpable radial and pedal pulses bilaterally. 96% on room air, diminished at the bases. Abdomen soft, round, obese.
Hypoactive bowel sounds. #25 condom cath intact, draining yellow urine. No BM, poor appetite, patient is minimally interested in food. Bruising on abdomen present on admission, dressing on scalp laceration CDI. Left midline patent, WNL, heparin and
NSS gtt on. Next PTT assessment 2230. Hourly rounding and patient safety checks ongoing.
[2023-12-18] MEDS: HEPARIN 25000 UNITS/250 ML IV (21:44)
[2023-12-18 22:59] LABS: APTT 98.1 Sec (23.4-35.0)
[2023-12-19] VITALS (11 sets, daily range): BP systolic 113–142; BP diastolic 59–95
[2023-12-19 04:21] LABS: Blood Urea Nitrogen 27 mg/dl (9-20); Calcium 8.7 mg/dl (8.4-10.2); Carbon Dioxide 25 mmol/L (22-30); Chloride 110 mmol/L (98-107); Glucose 89 mg/dl (70-99); Hematocrit 34.6 % (39.0-52.0); Hemoglobin 11.5 g/dL (13.0-18.0); Mean Corp Hgb Conc. 33.2 g/dL (33.0-37.0); Mean Corpuscular Hgb 29.3 pg (27.0-31.0); Mean Platelet Volume 11.4 fL (7.4-10.4); Platelet Count 168 10^3/uL (130-400); Potassium 4.4 mmol/L (3.5-5.1); Red Blood Cell Count 3.93 10^6/uL (4.70-6.10); Red Cell Dist. Width 14.3 % (11.5-14.5); Sodium 141 mmol/L (135-145); eGFR > 60.00
[2023-12-19] MEDS: NSS 1000 IV ×2 (07:16→13:31)
[2023-12-19] MEDS: ZYPREXA 2.5 MG PO (08:42)
[2023-12-19] MEDS: CELEXA 10 MG PO (08:42)
[2023-12-19] MEDS: LOW STRENGTH ASPIRIN 81 MG PO (08:42)
[2023-12-19] MEDS: FLORASTOR 250 MG PO (08:42)
--- NOTE | 2023-12-19 08:44 | W.PN.NEURO.1 ---
Today's Communication / Plan
-
Agree with IV heparin
May restart warfarin as replacement for heparin IV
New CAT scan of head December 24, 2023; if that study fails to demonstrate subdural hematomas, would reinitiate aspirin 81 mg daily
Neuro Assessment/Plan
Assessment
IMPRESSIONS/RECOMMENDATIONS:
Abrupt change in mentation with lethargy and hypotension subsequently found to have changes on CT of the head at the time of presentation to this hospital's emergency department
Subsequent MRI of the brain performed indicated bilateral posterior acute ischemic strokes coupled with previously diagnosed bilateral subdural hematomas larger on the left than on the right secondary to traumatic injury.
Patient was not a candidate for either intra-arterial thrombectomy due to absence of clot for retrieval as well as for tenecteplase due to high MRS
Unlikely patient will have significant cognitive or visual recovery
Plan
Agree with IV heparin
May restart warfarin as replacement for heparin IV
New CAT scan of head December 24, 2023; if that study fails to demonstrate subdural hematomas, would reinitiate aspirin 81 mg daily
Continue rosuvastatin
Rehabilitation evaluations
Medical educational materials to be provided
No clear benefit from the patient continuing donepezil based on severity of patient's cognitive loss at this time
Will continue to follow peripherally.
Subjective/Objective
Subjective Data
Date of Service: December 19, 2023
Patient unable to provide his own medical history
Objective Data
Vital Signs
Temp Pulse Resp BP Pulse Ox
36.8 C 78 15 113/95 95
12/19/23 07:00 12/19/23 05:45 12/19/23 05:45 12/19/23 04:00 12/18/23 22:30
Lab Results
12/19/23 02:50
12/19/23 02:50
PT 20.3 Sec (11.4-14.6) H 12/17/23 16:29
INR 1.76 12/17/23 16:29
APTT 88.0 Sec (23.4-35.0) H 12/19/23 02:50
Sodium 141 mmol/L (135-145) 12/19/23 02:50
Potassium 4.4 mmol/L (3.5-5.1) 12/19/23 02:50
BUN 27 mg/dl (9-20) H 12/19/23 02:50
Glucose 89 mg/dl (70-99) 12/19/23 02:50
Calcium 8.7 mg/dl (8.4-10.2) 12/19/23 02:50
Patient Allergies
No Known Allergies Allergy (Verified 12/17/23 15:36)
Review of Systems
-
Unable to obtain full review of systems at this time due to: Dementia
History Source: Patient
All other systems: Reviewed and negative
Physical Exam
-
General: No Apparent Distress and Appears Stated Age
Eyes: Round OU, [place] Conjunctivae and No Ptosis
HEENT: Anicteric and Moist Mucous Membranes
Neck: Full Range of Motion
Respiratory: No Dyspnea
Cardiac: No JVD
GI: Non-distended
Skin: Unremarkable
Extremities: No Clubbing, No Cyanosis and No Edema
Psych: Negative Intact Judgement/Insight
Extended Neurological Exam
Mood & Affect: Mood Unremarkable and Affect Unremarkable
Attention Span & Concentration: Awake, Alert and Interactive
Memory: Reduced (For current location) and Unable to Recall Personal History
Tremor: Hand Tremor Absent and Head Tremor Absent
Speech: Quality Unremarkable, Mildly Reduced Output and Other (Significant perseveration at times)
Cranial Nerve II: Left Eye: Pupillary Size Unremarkable and Visual Leung Reduced (Left hemifield)
Cranial Nerve II: Right Eye: Pupillary Size Unremarkable and Visual Leung Reduced (Suggested left hemifield only)
Cranial Nerves III, IV, : Extraocular Movement: Grossly Intact
Cranial Nerve V: Facial Sensation: Unable to Assess
Cranial Nerve VII: Facial Symmetry: Normal Facial Symmetry
Cranial Nerve VIII: Hearing: Unremarkable Hearing to Normal Conversational Volume
Muscle Strength, Overall: Spontaneously Moves (All extremities)
Cold Sensation: Unable to Assess
Vibration Sensation: Unable to Assess
Touch Sensation: Unremarkable
Coordination: Reaches for Objects without Difficulty
Gait & Station: Unable to Assess
Data Reviewed
-
MRI Head: Image Reviewed
Labs: Report Reviewed
Reviewed with: Nurse and Family (By phone yesterday afternoon)
Old Records: Summarized
Past History
Past History
ED Past Medical History: HTN, Hypercholesterolemia, Valvular disease and Other (Alzheimer's dementia, rectal bleeding 2015, irritable bowel disease, BPH)
ED Past Surgical History: Cardiac (St. Kunal's valve surgery)
Social History
Tobacco: Non-smoker
Alcohol: None
Drug: None
Personal:
Living: [facility]
Employment: Retired
Family History
Family History: Other (Reviewed and noncontributory)
Medications
-
Medications:
Generic Name Dose Route Start Last Admin
Trade Name Freq PRN Reason Stop Dose Admin
Acetaminophen 650 mg 12/17/23 20:47
Acetaminophen 325 Mg Tablet PO 01/14/24 20:46
Q4HPRN PRN
mild pain/LAZO/temp> 100.4F
Aspirin 81 mg 12/18/23 08:00 12/18/23 09:10
Aspirin 81 Mg Chewable Tablet PO 01/15/24 07:59 81 mg
DAILY CHLOE Administration
Bisacodyl 10 mg 12/17/23 20:47
Bisacodyl 10 Mg Rectal Suppository RECTAL 01/14/24 20:46
[id number] PRN
no BM, MoM ineffective
Citalopram Hydrobromide 10 mg 12/18/23 08:00 12/18/23 09:09
Citalopram 10 Mg Tablet PO 01/15/24 07:59 10 mg
DAILY CHLOE Administration
Heparin Sodium 25,000 units in 250 mls @ 0 mls/hr 12/17/23 18:00 12/18/23 21:44
Heparin 89024 Units/250 Ml IV 250 mls
PER PROTOCOL CHLOE Administration
Protocol
Per Protocol
Sodium Chloride 1,000 mls @ 100 mls/hr 12/17/23 20:47 12/19/23 07:16
Nss IV 1,000 mls
.Q10H CHLOE Administration
Magnesium Hydroxide 30 ml 12/17/23 20:47
Milk Of Magnesia 30 Ml Cup PO 01/14/24 20:46
HSPRN PRN
CONSTIPATION
Donepezil 23 Mg 0 mg 12/18/23 08:00
Tablet - 1 Tablet ( PO 01/15/24 07:59
23mg) Po Daily DAILY CLHOE
Olanzapine 2.5 mg 12/18/23 08:00 12/18/23 09:10
Olanzapine 2.5 Mg Tablet PO 01/15/24 07:59 2.5 mg
DAILY CHLOE Administration
Rosuvastatin Calcium 40 mg 12/17/23 20:47 12/18/23 17:18
Rosuvastatin (Crestor) 40 Mg Tablet PO 01/14/24 20:46 40 mg
QPM CHLOE Administration
Saccharomyces Boulardii 250 mg 12/18/23 08:00 12/18/23 09:10
Saccharomyces Boulardi (Florastor) 250 Mg Capsule PO 12/22/23 08:01 250 mg
DAILY CHLOE Administration
Sodium Chloride 0 flush 12/17/23 21:00
Sodium Chloride 0.9% (Flush) Syringe IV 01/14/24 20:59
PER PROTOCOL CHLOE
--- NOTE | 2023-12-19 09:57 | W.PN.HOSP.TC ---
Today's Communication/Plan
-
see bold
Assessment / Plan
Assessment / Plan
Gen: NAD, AAOx1.
Eyes: EOMI, PERRLA, no scleral icterus.
Neck: supple.
CV: remains irreg/irreg, normal S1, loud S2, no m/r/g.
Resp: CTAB, no rales, wheezes, or rhonchi.
Abd: +BS, soft, NT, ND
Skin: No rashes.
Neuro: CN 2-12 intact, non-focal.
Psych: calm.
MRI brain: Focal areas of abnormal restricted diffusion involving the posterior aspect of bilateral cerebral hemispheres, as described, appearance compatible with regions of acute to subacute infarction. Bilateral subdural hematomas, subacute to
chronic, left and right. Small hematomas within the inferior frontal lobes, with peripheral hemosiderin rims, which is likely related to previous stress-related injury. There is increased T2 and FLAIR signal within the white matter of the inferior
frontal lobes, which is also related to previous stress-related injury.
MRA head: Mild to moderate motion artifact, limiting evaluation. On MR arteriography, there is no evidence for significant focal stenosis. 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
hypoplasia as normal variation. No evidence of filling defect to suggest thrombus.
CT A/P: Mild distention of the gallbladder with no evidence for calcified gallstones. No CT findings that would be considered highly suggestive of acute cholecystitis. Stable small hepatic cysts present. Small benign dystrophic calcifications within
the right lobe of the liver. Moderate enlargement of the prostate gland, extending into the base of the bladder. Bony degenerative changes
Hypotension/altered mental status:
-On admission, pt AAO x 1, quite alert which appears to be his baseline, without meningeal signs or fever to suggest meningitis/encephalitis. Neurological examination on admission without focal deficits.
-Urinalysis negative
-neuro following
-cont IVFs
-Holding home antihypertensive medications
-Lactic acidosis, POA, resolved with IVFs
-unclear why BCxs were ordered but will follow (NGTD)
-TSH and fasting cortisol normal
New large region of cytotoxic edema in the left parietal/subdural/posterior temporal lobes and right parietal lobe likely CVA, Small to moderate subacute subdural hematomas:
-MRI brain above, notable for bilateral posterior cerebral areas of acute to subacute infarction, bilateral subacute to chronic subdural hematomas, small hematomas within the inferior lobes likely due to previous stress related injury
-Diagnostic possibilities include large acute ischemic transcortical infarcts, acute cerebral venous infarctions, posterior reversible encephalopathy syndrome or severe infectious/inflammatory cerebritis
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
-Neurochecks/NIH checks per stroke protocol
-cont Heparin drip and begin bridge with coumadin (discussed with Dr. Sandoval). Stop ASA as per Dr. Sandoval.
-repeat CT Brain 12/24/23
h/o Mechanical AV:
-subtherapeutic INR
-heparin/coumadin bridge as above
Other problems:
ABHISHEK: prerenal, resolved with IVFs
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
Abdominal pain: CT A/P unremarkable as above
Essential hypertension: Holding home amlodipine, losartan, metoprolol, spironolactone
Dementia: cont donepezil/citalopram/olanzapine
Hypercholesterolemia: Continue statin
DNR/DNI
Heparin drip
Anticipated Discharge: > 48 hours
Subjective/Interval History
-
Date of Service: December 19, 2023
No new complaints.
Objective Data
-
Labs:
Laboratory Results
12/18/23 12/19/23 12/19/23
22:42 02:50 09:56
WBC 6.0
Hgb 11.5 L
Hct 34.6 L
Plt Count 168
PT Pending
INR Pending
APTT 98.1 H 88.0 H
Sodium 141
Potassium 4.4
Chloride 110 H
Carbon Dioxide 25
BUN 27 H
Creatinine 0.9
Glucose 89
Calcium 8.7
Vital Signs:
Vital Signs
Temp Pulse Resp BP Pulse Ox
98.2 F 78 15 113/95 95
12/19/23 07:00 12/19/23 05:45 12/19/23 05:45 12/19/23 04:00 12/18/23 22:30
I&O
12/18/23 12/19/23 12/20/23
06:59 06:59 06:59
Intake Total 990 / 1100 2495 / 2495 432 / 432
Output Total 350 / 350 1350 / 1350
Balance 640 / 750 1145 / 1145 432 / 432
--- NOTE | 2023-12-19 11:14 | PTOTSP ---
Speech Therapy Assessment
Swallowing deemed grossly within functional limits without overt signs of aspiration during bedside assessment. However, given cognitive status, the risk for aspiration is somewhat elevated.
Speech/language/cognitive skills appear to be significantly worse when compared to outpatient speech therapy evaluation from 04/25/2023.
Recommend
1. Regular solids and Thin Liquids
2. Meds as tolerated. May need to crush if the patient has difficulty maneuvering pills in mouth.
3. Supervision and assist to feed given initiation and visual deficits.
ST will follow to further assess functional cognitive communication skills
[2023-12-19 11:42] LABS: INR 1.95; PT 22.5 Sec (11.4-14.6)
--- NOTE | 2023-12-19 14:44 | PTCARENOTE ---
Pt oriented to self only. Difficult to complete NIH due to pt uncooperative. Closes eyes when testing pupil reaction. Answers yes/no questions or repeats what is said to him. Denies pain but says 'ouch' when toughed anywhere. Able to get OOB to
chair with 2 assist and A LOT of direction. Follows only simple one step commands. Refuses to eat. Ordered lunch non-par and attempted to feed. Pt swished food and drinks around in his mouth then spit them out. Remains on IVF and Heparin gtt
at this time.
[2023-12-19] MEDS: COUMADIN 5 MG PO (17:15)
[2023-12-19] MEDS: CRESTOR 40 MG PO (17:15)
--- NOTE | 2023-12-19 20:00 | PTCARENOTE ---
rec`d pt at 1900 laying in bed, sleeping. Pt arousable to verbal stimuli. pt knows self, but does not know date or place. follows simple commands. RN has to tell pt 1 command at a time. Sinus arrhythmia on monitor. +pulses, no edema. afebrile. Left
midline in place with heparin and NS running. Room air satting at 98%. Pt`s food tray present at bedside, but pt states he does not want to eat or drink. RN encouraged to eat. Pt still denies. No BM. #[address] draining yellow urine.
head lac on back of head. pt comfortable, call ramirez in reach. safe environment maintained.
[2023-12-20] VITALS (9 sets, daily range): BP systolic 117–180; BP diastolic 59–83; PULSE 84; O2SAT 97; BMI 27.7
[2023-12-20] MEDS: NSS 1000 IV (02:03)
[2023-12-20 04:48] LABS: INR 2.53; PT 27.6 Sec (11.4-14.6)
[2023-12-20] MEDS: HEPARIN 25000 UNITS/250 ML IV (05:11)
--- NOTE | 2023-12-20 07:56 | W.PN.NEURO.1 ---
Today's Communication / Plan
-
-Continue anticoagulation bridging from heparin to coumadin
-Benefits of anticoagulation felt to outweigh risks, patient remains at risk for worsened intracranial bleeding with the subdural hematomas but is at even greater risk of emboli given mechanical heart valve if not on anticoagulation
-Would not have on aspirin given risks of additional antithrombotics with the subdural hematomas
-Repeat CT head 12/24 examining for changes in subdural hematomas
-Goal normotension
-Okay for moving out of ICU from neurologic perspective
-Minimize sedating medications
-NIH and neurologic checks
Will follow
Neuro Assessment/Plan
Assessment
IMPRESSIONS/RECOMMENDATIONS:
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
Traumatic chronic subdural hematomas present
Dementia at baseline
Subjective/Objective
Subjective Data
Date of Service: December 20, 2023
No acute events, patient with no complaints, denies pain or headache
Objective Data
Vital Signs
Temp Pulse Resp BP Pulse Ox
98.3 F 80 21 127/69 95
12/19/23 15:10 12/20/23 05:00 12/20/23 05:00 12/19/23 20:16 12/18/23 22:30
Lab Results
12/19/23 02:50
12/19/23 02:50
PT 27.6 Sec (11.4-14.6) H 12/20/23 04:14
INR 2.53 12/20/23 04:14
APTT 88.0 Sec (23.4-35.0) H 12/19/23 02:50
Sodium 141 mmol/L (135-145) 12/19/23 02:50
Potassium 4.4 mmol/L (3.5-5.1) 12/19/23 02:50
BUN 27 mg/dl (9-20) H 12/19/23 02:50
Glucose 89 mg/dl (70-99) 12/19/23 02:50
Calcium 8.7 mg/dl (8.4-10.2) 12/19/23 02:50
Patient Allergies
No Known Allergies Allergy (Verified 12/17/23 15:36)
Review of Systems
-
History Source: Patient
All other systems: Reviewed and negative
Constitutional: No Symptoms
EENT: No Symptoms Reported
Respiratory: No Symptoms
Cardiac: No Symptoms
Abdomen/GI: No Symptoms
Genitourinary: No Symptoms
Musculoskeletal: No Symptoms
Skin: No Symptoms
Neuro: No Symptoms
Endocrine: No Symptoms
Hematologic / Lymphatic: No Symptoms
Allergy / Immunology: No Symptoms
Physical Exam
-
General: Comfortable
Eyes: No Ptosis
Respiratory: Clear to Auscultation
Cardiac: Regular Rhythm
GI: Normal Bowel Sounds
Skin: Unremarkable
Extremities: No Clubbing
Psych: Apparent Dementia
Extended Neurological Exam
Attention Span & Concentration: Awake, Alert, Interactive and Other (Can't name months of year or days of the week in order, will count to 10 when prompted to do so, awake and conversational and responsive)
Memory: Reduced
Tremor: Hand Tremor Absent
Involuntary Movement: None
Speech: Quality Unremarkable, Quantity Unremarkable and Expressive Aphasia; Negative Receptive Aphasia or Dysarthric
Cranial Nerve II: Left Eye: Pupillary Reactivity Unremarkable, Pupillary Size Unremarkable and Visual Leung Intact
Cranial Nerve II: Right Eye: Pupillary Reactivity Unremarkable, Pupillary Size Unremarkable and Visual Leung Intact
Cranial Nerve VII: Facial Symmetry: Normal Facial Symmetry
Muscle Strength, Overall: Full Throughout
Pronator Drift: No Drift in Upper Extremities
Touch Sensation: Testing in Upper Extremities
Babinski Sign: Absent Bilaterally
Data Reviewed
-
CT Head: Report Reviewed and Image Reviewed
MRI Head: Report Reviewed and Image Reviewed
MRA Head: Report Reviewed and Image Reviewed
MRA Neck: Report Reviewed and Image Reviewed
Labs: Report Reviewed
[2023-12-20 08:13] LABS: APTT 109.2 Sec (23.4-35.0)
[2023-12-20] MEDS: CELEXA PO (09:12)
[2023-12-20] MEDS: FLORASTOR PO (09:12)
[2023-12-20] MEDS: ZYPREXA PO (09:12)
--- NOTE | 2023-12-20 09:19 | PTCARENOTE ---
report received, assessments per work list. NIH per work list. patient refusing all oral food and medications. condom cath off, male pure wick applied. during turning, patient vomited 100 ml yellow bilious fluid. no prn medications ordered.
Hospitalist updated by [email or web address] [email or web address] regarding vomiting, refusal of oral medications, foods and lack of prn medication for symptom relief. tiger text acknowledged. orders pending
--- NOTE | 2023-12-20 10:18 | CON.MD ---
Consultation - Medical
-
Referring Provider: Dr. Krunal Antonio
Chief Complaint: Stroke
History of Present Illness: 78-year-old male with PMH (as below) presented to [facility] on 12/17/2023 with lethargy and hypotension from [facility]. He has dementia and is oriented to self at baseline. Recent history significant for
a fall 9 days prior to evaluation with a CT noting a subdural hematoma. Started on doxycycline with scalp hematoma on Coumadin for mechanical aortic valve. Found on MRI to have bilateral posterior acute ischemic strokes with previously diagnosed
bilateral subdural hematomas larger on the left than the right secondary to traumatic injury. Not a candidate for intra-arterial thrombectomy or tenecteplase. Unclear if patient was taking Coumadin prior to arrival. INR was subtherapeutic and
thought to likely be a cardioembolic source. He was started on a heparin drip with bridge to Coumadin. Aspirin being held until repeat CT scan 12/24/2023 with plan to restart aspirin if study fails to demonstrate subdural hematomas. Also with
hypotension and ABHISHEK improved with IV fluids.
History from chart and discussion with nursing as patient with memory concerns
Past Medical History: dementia, recent subdural hematoma, mechanical aortic valve replacement on Coumadin, hypertension, hypercholesteremia
Procedure History: Aortic valve replacement
Family History: None pertinent
Social History:
Functional Level Premorbidly: Assisted with all activities. Requires assistance of 1 with transferring, is in a wheelchair or recliner chair most of the day per Jayce Lara per case management.
Functional Level Currently:�� Per speech regular and thin liquid diet. Supervision assistance with feeding with initiation and visual deficits. Max assist bed mobility, mod assist transfers.
Tobacco: Denies
Alcohol: Denies
Drug use: Denies
Lives with: Lives in [facility]
24-hour assistance available: Yes
Number of floors: 1
# steps to enter: 0
Driving: No
Occupation: Retired
�
Allergies:
Allergy/AdvReac Type Severity Reaction Status Date / Time
No Known Allergies Allergy Verified 12/17/23 15:36
Review of Systems: Patient denies any concerns.
Constitutional: (x) Normal _
Eye: (x) Normal _
Ear/Nose/Throat: (x) Normal _
Respiratory: (x) Normal _
Cardiovascular: (x) Normal _
Gastrointestinal: (x) Normal _
Genitourinary: (x) Normal _
Musculoskeletal: (x) Normal _
Integumentary: (x) Normal _
Neurologic: (x) Normal _
Psychiatric: (x) Normal _
Endocrine: (x) Normal _
Hematologic/Lymphatic: (x) Normal _
Allergic/Immunologic: (x) Normal _
Medications:
Active Current Visit Medication List
Category Date Time Status
0.9% Sodium Chloride 1000 ml [Nss] 1,000 ml Med 12/17/23 20:47 Active
IV 75 mls/hr
Acetaminophen [Tylenol] Med 12/17/23 20:47 Active
650 mg PO Q4HPRN PRN
Bisacodyl [Dulcolax] Med 12/17/23 20:47 Active
10 mg RECTAL [id number] PRN
Citalopram [Celexa] Med 12/18/23 08:00 Active
10 mg PO DAILY
Flush (0.9% Sodium Chloride) [Flush (Nss)] Med 12/17/23 21:00 Active
See Dose Instructions IV PER PROTOCOL
Magnesium Hydroxide [Milk of Magnesia] Med 12/17/23 20:47 Active
30 ml PO HSPRN PRN
Olanzapine [Zyprexa] Med 12/18/23 08:00 Active
2.5 mg PO DAILY
Rosuvastatin Calcium [Crestor] Med 12/17/23 20:47 Active
40 mg PO QPM
Saccharomyces Boulardii [Florastor] Med 12/18/23 08:00 Active
250 mg PO DAILY
Warfarin [Coumadin] Med 12/19/23 18:00 Active
5 mg PO QPM
Vitals:
Temp Pulse Resp BP Pulse Ox
98.6 F 80 21 127/69 95
12/20/23 08:03 12/20/23 05:00 12/20/23 05:00 12/19/23 20:16 12/18/23 22:30
Actual Weight 92 kg
Physical Exam:
General Appearance/Observation: Well-developed, well-nourished male sitting in chair in no apparent distress.
Pain/Comfort Assessment: Denies
Mood/Affect: Appropriate
Integumentary/Operative Site: No open lesions noted during course of exam.
Eyes: Conjunctiva/Lids: normal ��� Pupils: pupils equal round and reactive to light and Accommodation
Ears/Nose/Throat: oral mucosa moist,� throat clear.������������ Lips/Teeth/Gums: normal
Cardiovascular: Heart: regular, mechanical click
Pulses: dorsalis pedis 2+ bilaterally
Respiratory: Respiratory Effort/Chest Expansion: normal ������ Auscultation: Clear to auscultation bilaterally
Gastrointestinal: abdomen not tender, no distension, normal abdominal bowel sounds
Genitourinary: Catheter with yellow urine
Extremities: Edema: None Cyanosis: None Trophic changes: None
Neurology Exam:
Orientation: Alert, Oriented to self only. Thought it was January 2023.
Memory: Significantly impaired
Repetition: Intact
Comprehension: Impaired
Two step command: Impaired
Cranial Nerves:
�� CNII: Pupillary light reflex: Intact��� Visual Field: Impaired on right
�� CN III, IV, : Extraocular muscles: Intact
�� CN V: Facial Sensation at Forehead: Intact, Maxilla: Intact, Mandible: Intact
�� CN VII: Facial movement: Symmetric
�� CN VIII: Hearing: Normal
�� CN IX/X: Speech & swallow: Has word finding difficulties position of Uvula: Midline
�� CN XI: Shoulder shrug: Symmetric
�� CN XII: Tongue protrusion: Midline
Sensory:
�� Light touch: Difficulty with attention and command following but appear to be intact bilateral upper and lower extremities
Reflexes:
�� Biceps: 2+ bilaterally
�� Brachioradialis: 2+ bilaterally
�� Triceps: 2+ bilaterally
�� Patellar: 2+ bilaterally
�� Achilles: 2+ bilaterally
�� Babinski: Down going bilaterally
�� Clonus: None
�� Ney: Negative bilaterally
Cerebellar: Dysmetria/Ataxia: Unable to test on right because patient cannot attend to the right visual field. Has difficulty on the left with [id number].
Musculoskeletal: Motor: (Manual muscle scale 0-5)
Muscle SA EF WE EE FF FA HF KE DF EHL PF
Right� 5 5 5 5 5 4 5 5 5
Left 5 5 5 5 5 4+ 5 5 5
Tone: Normal in all extremities
Range of Motion: Passively within normal limits in all extremities
Lab Results
Laboratory Data
12/19/23 02:50
12/19/23 02:50
PT 27.6 Sec (11.4-14.6) H 12/20/23 04:14
INR 2.53 12/20/23 04:14
APTT 109.2 Sec (23.4-35.0) H 12/20/23 04:14
Total Bilirubin 0.7 mg/dl (0.2-1.3) 12/18/23 04:24
AST 41 U/L (17-59) 12/18/23 04:24
ALT 42 U/L (0-50) 12/18/23 04:24
Alkaline Phosphatase 106 U/L (38-126) 12/18/23 04:24
Total Protein 5.7 g/dl (6.3-8.2) L 12/18/23 04:24
Albumin 2.9 g/dl (3.5-5.0) L 12/18/23 04:24
�
Diagnostic Results: as per HPI
Assessment
78-year-old M PMH (dementia, recent subdural hematoma, mechanical aortic valve replacement on Coumadin, hypertension, hypercholesteremia) with recent traumatic subdural hematomas with 12/17/2023 with bilateral posterior acute ischemic strokes likely
secondary to subtherapeutic INR.
Plan
PM&R PT/OT to increase independence with ADLs, improve balance, coordination, endurance, strength, mobility, community reintegration, decreased burden of care on others and family education.
CVA: Secondary prophylaxis with Coumadin with presumed cardioembolic stroke. Statin and blood pressure control (SBP less than 180 and diastolic less than 100 to participate with therapy for ischemic stroke). Continue to monitor neurologic status.
Right sided inattention: Neglect versus visual field cut. Makes patient at increased risk for falls.� Will need therapy to work on scanning of environment for safe navigation.
Word finding difficulty: Could be cognitive versus aphasia, speech
Dementia:� donepezil/citalopram/olanzapine
Mechanical aortic valve replacement: Heparin bridge to warfarin
HTN: Noted with ABHISHEK hypotension on arrival. Getting IV fluids with blood pressure meds held temporarily. Monitor closely.
HLD: Statin
Anemia: Likely multifactorial.� Continue to monitor.
FEN: On regular diet, has elevated BUN. Just completed IV fluids per nursing patient is not eating much. May benefit from normal foods or having family feed him. Monitor calorie intake.
Psych: Psychology consult.� Monitor mood, citalopram 10 mg daily, did not tolerate higher dosing in the past. Zyprexa 2.5 mg at night
Skin: monitor for pressure sores/rashes/lesions.
Pain: acetaminophen as needed.
Bowel: Colace and Senna, PRN bisacodyl.
Bladder: Time void, PVRs, PRN straight cath.
DVT Prophylaxis: Mechanical and heparin bridge to Coumadin.
Pulmonary: Incentive spirometry
Safety: Continue to reinforce assistance with all transfers.
Code Status:� DNR per chart
Dispo (date/plan/equipment needs): Home with family care.
Functional and Medical Goals: Modified Independent with ADL�s, ambulation, transfers
Discharge Destination: long term facility
-A total of 60 minutes were spent with the patient preparing for the evaluation, obtaining history, performing examination and evaluation, counseling, data review, case management, care coordination, border police, and EMR documentation.
Summary of recommendations:
- Discharge Destination: long term facility
Right sided inattention: Neglect versus visual field cut. Makes patient at increased risk for falls.� Will need therapy to work on scanning of environment for safe navigation.
Word finding difficulty: Could be cognitive versus aphasia, speech
Dementia:�donepezil/citalopram/olanzapine
FEN: On regular diet, has elevated BUN. Just completed IV fluids per nursing patient is not eating much. May benefit from normal foods or having family feed him. Monitor calorie intake.
Thank you for allowing me to care for your patient. Please contact me with any questions or concerns.
--- NOTE | 2023-12-20 12:02 | W.PN.HOSP.TC ---
Today's Communication/Plan
-
see bold
Assessment / Plan
Assessment / Plan
Gen: NAD, Awake and alert
Eyes: EOMI, PERRLA, no scleral icterus.
Neck: supple.
CV: continues to remain irreg/irreg, normal S1, loud S2, no m/r/g.
Resp: remains CTAB, no rales, wheezes, or rhonchi.
Abd: +BS, soft, NT, ND
Skin: No rashes.
Neuro: CN 2-12 intact, non-focal.
Psych: calm.
MRI brain: Focal areas of abnormal restricted diffusion involving the posterior aspect of bilateral cerebral hemispheres, as described, appearance compatible with regions of acute to subacute infarction. Bilateral subdural hematomas, subacute to
chronic, left and right. Small hematomas within the inferior frontal lobes, with peripheral hemosiderin rims, which is likely related to previous stress-related injury. There is increased T2 and FLAIR signal within the white matter of the inferior
frontal lobes, which is also related to previous stress-related injury.
MRA head: Mild to moderate motion artifact, limiting evaluation. On MR arteriography, there is no evidence for significant focal stenosis. 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
hypoplasia as normal variation. No evidence of filling defect to suggest thrombus.
CT A/P: Mild distention of the gallbladder with no evidence for calcified gallstones. No CT findings that would be considered highly suggestive of acute cholecystitis. Stable small hepatic cysts present. Small benign dystrophic calcifications within
the right lobe of the liver. Moderate enlargement of the prostate gland, extending into the base of the bladder. Bony degenerative changes
Hypotension/altered mental status:
-On admission, pt AAO x 1, quite alert which appears to be his baseline, without meningeal signs or fever to suggest meningitis/encephalitis. Neurological examination on admission without focal deficits.
-Urinalysis negative
-neuro following
-stop IVFs
-Holding home antihypertensive medications
-Lactic acidosis, POA, resolved with IVFs
-unclear why BCxs were ordered but will follow (NGTD)
-TSH and fasting cortisol normal
New large region of cytotoxic edema in the left parietal/subdural/posterior temporal lobes and right parietal lobe likely CVA, Small to moderate subacute subdural hematomas:
-MRI brain above, notable for bilateral posterior cerebral areas of acute to subacute infarction, bilateral subacute to chronic subdural hematomas, small hematomas within the inferior lobes likely due to previous stress related injury
-Diagnostic possibilities include large acute ischemic transcortical infarcts, acute cerebral venous infarctions, posterior reversible encephalopathy syndrome or severe infectious/inflammatory cerebritis
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
-Neurochecks/NIH checks per stroke protocol
-stop Heparin drip as INR therapeutic
-repeat CT Brain 12/24/23
h/o Mechanical AV:
-subtherapeutic INR on admission, now therapeutic as above
Other problems:
ABHISHEK: prerenal, resolved with IVFs
Scalp laceration due to recent fall: Started on doxycycline 2 to 3 days [employer] AL[employer] DISPATCHER
Abdominal pain: CT A/P unremarkable as above
Essential hypertension: Holding home amlodipine, losartan, metoprolol, spironolactone
Dementia: cont citalopram/olanzapine
Hypercholesterolemia: Continue statin
DNR/DNI
Coumadin
Anticipated Discharge: > 48 hours
Subjective/Interval History
-
Date of Service: December 20, 2023
When asked about CP or SOB pt says 'yes I have to urinate.'
Objective Data
-
Labs:
Laboratory Results
12/20/23
04:14
PT 27.6 H
INR 2.53
APTT 109.2 H
Vital Signs:
Vital Signs
Temp Pulse Resp BP Pulse Ox
98.1 F 87 13 158/66 99
12/20/23 11:19 12/20/23 11:45 12/20/23 11:45 12/20/23 11:18 12/20/23 11:45
I&O
12/19/23 12/20/23 12/21/23
06:59 06:59 06:59
Intake Total 2495 / 2495 2091 / 2091 391 / 391
Output Total 1350 / 1350 1575 / 1575
Balance 1145 / 1145 517 / 517 391 / 391
[2023-12-20] MEDS: DESENEX/MITRAZOL/ZEASORB 1 APPLIC TOPICAL ×2 (12:26→22:34)
--- NOTE | 2023-12-20 12:33 | PTCARENOTE ---
Addendum entered by Ginette Wu RN 12/20/23 12:38:
patient denies nausea or pain
Original Note:
patient oob to chair, refuses lunch, oral intake. Hospitalist updated regarding refusal of medications and food. order received to d/c IVF, clarified with Dr Antonio.chair alarm in place.
--- NOTE | 2023-12-20 14:17 | PTCARENOTE ---
report called to 3 heather RN
--- NOTE | 2023-12-20 14:38 | CM ---
CM following re: discharge planning.
Discussed in Rounds, reviewed pt's chart met with pt. Per Rounds meeting, pt is downgraded from ICU, refuses medications.
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 Per [facility] admissions department exhibit display representative, pt will be
accepted back when medically stable.
D/C plan: return back to [facility] for a longterm care.
CM will follow with discharge plan updates as hospitalization progresses
[2023-12-20] MEDS: CRESTOR 40 MG PO (17:48)
[2023-12-20] MEDS: COUMADIN 2.5 MG PO (17:48)
--- NOTE | 2023-12-20 22:30 | PTCARENOTE ---
NIH increased to 8. Pt expressed wrong month & year, poor vision bilateral eyes R worse than L, weakness in legs unable to completely lift them off of bed, and expressive aphasia. Hx dementia, confused at baseline. YARN SIZER made aware, Head CT ordered.
Radiologist called and informed this RN of Head CT result, result=mildly increased hematoma, YARN SIZER made aware, no new orders provided.
[2023-12-21 06:50] LABS: INR 3.64; PT 36.8 Sec (11.4-14.6)
[2023-12-21 07:00] VITALS: BP 141/70
[2023-12-21] MEDS: CELEXA PO ×2 (08:11→08:19)
[2023-12-21] MEDS: FLORASTOR PO ×2 (08:12→08:20)
[2023-12-21] MEDS: DESENEX/MITRAZOL/ZEASORB 1 APPLIC TOPICAL ×2 (08:12→21:06)
[2023-12-21] MEDS: ZYPREXA PO ×2 (08:12→08:20)
--- NOTE | 2023-12-21 08:15 | W.PN.NEURO.1 ---
Today's Communication / Plan
-
-Continue coumadin, off heparin infusion now
-Remain off aspirin
-Neurologic checks and NIH scales
-CT head 12/24 non contrast
-Minimize sedating medications
-Goal normotension and normoglycemia
Will follow
Neuro Assessment/Plan
Assessment
IMPRESSIONS/RECOMMENDATIONS:
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
Traumatic chronic subdural hematomas present
Dementia at baseline
Subjective/Objective
Subjective Data
Date of Service: December 21, 2023
No acute events, remains with confusion, no complaints
Objective Data
Vital Signs
Temp Pulse Resp BP Pulse Ox
98.6 F 85 18 141/70 97
12/21/23 07:00 12/21/23 07:00 12/21/23 07:00 12/21/23 07:00 12/21/23 07:00
Lab Results
12/19/23 02:50
12/19/23 02:50
PT 36.8 Sec (11.4-14.6) H 12/21/23 06:16
INR 3.64 12/21/23 06:16
APTT 109.2 Sec (23.4-35.0) H 12/20/23 04:14
Sodium 141 mmol/L (135-145) 12/19/23 02:50
Potassium 4.4 mmol/L (3.5-5.1) 12/19/23 02:50
BUN 27 mg/dl (9-20) H 12/19/23 02:50
Glucose 89 mg/dl (70-99) 12/19/23 02:50
Calcium 8.7 mg/dl (8.4-10.2) 12/19/23 02:50
Patient Allergies
No Known Allergies Allergy (Verified 02/19/24 15:36)
Review of Systems
-
History Source: Patient
All other systems: Reviewed and negative
Constitutional: No Symptoms
EENT: No Symptoms Reported
Respiratory: No Symptoms
Cardiac: No Symptoms
Abdomen/GI: No Symptoms
Genitourinary: No Symptoms
Musculoskeletal: No Symptoms
Skin: No Symptoms
Neuro: No Symptoms and See existing Neuro Note
Endocrine: No Symptoms
Hematologic / Lymphatic: No Symptoms
Allergy / Immunology: No Symptoms
Physical Exam
-
General: Comfortable and Obese
HEENT: Moist Mucous Membranes
Respiratory: No Dyspnea
Cardiac: Regular Rhythm and No Murmur
GI: Soft and Non-tender
Skin: Warm and Dry
Extremities: Edema +1
Psych: Apparent Dementia; Negative Agitated
Extended Neurological Exam
Attention Span & Concentration: Awake, Alert, Interactive and Mild Difficulty with 2 Step Request
Memory: Reduced
Tremor: Hand Tremor Absent
Involuntary Movement: None
Speech: Dysarthric; Negative Expressive Aphasia or Receptive Aphasia
Cranial Nerve II: Left Eye: Pupillary Reactivity Unremarkable and Pupillary Size Unremarkable
Cranial Nerve II: Right Eye: Pupillary Reactivity Unremarkable and Pupillary Size Unremarkable
Cranial Nerves III, IV, : Extraocular Movement: Extraocular Movement Full in all Directions and Other (Left gaze preference, can cross midline and look right)
Cranial Nerve VII: Facial Symmetry: Normal Facial Symmetry and Other
Muscle Strength, Overall: Other (5/5 and symmetric throughout)
Pronator Drift: No Drift in Upper Extremities
Touch Sensation: Withdrawal to Pain
Data Reviewed
-
CT Head: Report Reviewed and Image Reviewed
MRI Head: Report Reviewed and Image Reviewed
Echocardiogram: Report Reviewed
Labs: Report Reviewed
--- NOTE | 2023-12-21 09:38 | W.PN.HOSP.TC ---
Today's Communication/Plan
-
recommend pt stay in house until repeat CT brain 12/24/23. Check labs.
Assessment / Plan
Assessment / Plan
Gen: NAD, Awake and alert
Eyes: EOMI, PERRLA, no scleral icterus.
Neck: supple.
CV: irreg/irreg, normal S1, loud S2, no m/r/g.
Resp: Continues to remain CTAB, no rales, wheezes, or rhonchi.
Abd: +BS, soft, NT, ND
Skin: No rashes.
Neuro: Remains CN 2-12 intact, non-focal.
Psych: calm.
MRI brain: Focal areas of abnormal restricted diffusion involving the posterior aspect of bilateral cerebral hemispheres, as described, appearance compatible with regions of acute to subacute infarction. Bilateral subdural hematomas, subacute to
chronic, left and right. Small hematomas within the inferior frontal lobes, with peripheral hemosiderin rims, which is likely related to previous stress-related injury. There is increased T2 and FLAIR signal within the white matter of the inferior
frontal lobes, which is also related to previous stress-related injury.
MRA head: Mild to moderate motion artifact, limiting evaluation. On MR arteriography, there is no evidence for significant focal stenosis. 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
hypoplasia as normal variation. No evidence of filling defect to suggest thrombus.
CT A/P: Mild distention of the gallbladder with no evidence for calcified gallstones. No CT findings that would be considered highly suggestive of acute cholecystitis. Stable small hepatic cysts present. Small benign dystrophic calcifications within
the right lobe of the liver. Moderate enlargement of the prostate gland, extending into the base of the bladder. Bony degenerative changes
Hypotension/altered mental status:
-On admission, pt AAO x 1, quite alert which appears to be his baseline, without meningeal signs or fever to suggest meningitis/encephalitis. Neurological examination on admission without focal deficits.
-Urinalysis negative
-neuro following
-s/p IVFs
-Holding home antihypertensive medications
-Lactic acidosis, POA, resolved with IVFs
-unclear why BCxs were ordered but will follow (NGTD)
-TSH and fasting cortisol normal
New large region of cytotoxic edema in the left parietal/subdural/posterior temporal lobes and right parietal lobe likely CVA, Small to moderate subacute subdural hematomas:
-MRI brain above, notable for bilateral posterior cerebral areas of acute to subacute infarction, bilateral subacute to chronic subdural hematomas, small hematomas within the inferior lobes likely due to previous stress related injury
-Diagnostic possibilities include large acute ischemic transcortical infarcts, acute cerebral venous infarctions, posterior reversible encephalopathy syndrome or severe infectious/inflammatory cerebritis
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
-Neurochecks/NIH checks per stroke protocol
-Heparin drip stopped 12/20/23AM as INR was therapeutic
-repeat CT Brain 12/24/23
h/o Mechanical AV:
-subtherapeutic INR on admission, now supratherapeutic, hold coumadin today
Other problems:
ABHISHEK: prerenal, resolved with IVFs
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
Abdominal pain: CT A/P unremarkable as above
Essential hypertension: Holding home amlodipine, losartan, metoprolol, spironolactone
Dementia: cont citalopram/olanzapine
Hypercholesterolemia: Continue statin
DNR/DNI
Coumadin
Anticipated Discharge: > 48 hours
Subjective/Interval History
-
Date of Service: December 21, 2023
Denies chest pain, shortness of breath. As per nursing patient is refusing to take medications.
Objective Data
-
Labs:
Laboratory Results
12/21/23
06:16
PT 36.8 H
INR 3.64
Vital Signs:
Vital Signs
Temp Pulse Resp BP Pulse Ox
98.6 F 85 18 141/70 97
12/21/23 07:00 12/21/23 07:00 12/21/23 07:00 12/21/23 07:00 12/21/23 07:00
I&O
12/20/23 12/21/23 12/22/23
06:59 06:59 06:59
Intake Total 2091 / 2091 1126 / 1126
Output Total 1575 / 1575
Balance 517 / 517 1126 / 1126
[2023-12-21 10:11] LABS: Hematocrit 32.2 % (39.0-52.0); Hemoglobin 11.1 g/dL (13.0-18.0); Mean Corp Hgb Conc. 34.5 g/dL (33.0-37.0); Mean Corpuscular Hgb 29.3 pg (27.0-31.0); Mean Platelet Volume 11.9 fL (7.4-10.4); Platelet Count 180 10^3/uL (130-400); Red Blood Cell Count 3.79 10^6/uL (4.70-6.10); Red Cell Dist. Width 14.3 % (11.5-14.5); White Blood Cell Count 6.4 10^3/uL (4.8-10.8)
[2023-12-21 11:00] VITALS: BP 149/80
[2023-12-21 11:10] LABS: Blood Urea Nitrogen 9 mg/dl (9-20); Calcium 8.5 mg/dl (8.4-10.2); Carbon Dioxide 22 mmol/L (22-30); Chloride 110 mmol/L (98-107); Estimated Creatinine Clearance 82 ml/min; Glucose 87 mg/dl (70-99); Potassium 3.5 mmol/L (3.5-5.1); Sodium 137 mmol/L (135-145); eGFR > 60.00
[2023-12-21 14:12] VITALS: BMI 27.7
[2023-12-21 15:00] VITALS: BP 135/77
[2023-12-21] MEDS: CRESTOR PO (17:09)
--- NOTE | 2023-12-21 17:47 | PTCARENOTE ---
pt drowsy today, unable to stay alert enough to take meds. daughter at bedside tried to encourage pt to eat and drink, pt would take sips through straw then spit back out into straw. NIH bumped up to a 10 this AM, pt would follow some commands while
ignore others.
[2023-12-21 23:10] VITALS: BP 128/64
[2023-12-22 07:00] VITALS: BP 125/81
[2023-12-22 07:15] LABS: Hematocrit 33.1 % (39.0-52.0); Hemoglobin 11.4 g/dL (13.0-18.0); Mean Corp Hgb Conc. 34.4 g/dL (33.0-37.0); Mean Corpuscular Hgb 29.2 pg (27.0-31.0); Mean Corpuscular Volume 84.7 fL (80.0-94.0); Mean Platelet Volume 11.5 fL (7.4-10.4); Platelet Count 177 10^3/uL (130-400); Red Blood Cell Count 3.91 10^6/uL (4.70-6.10); Red Cell Dist. Width 14.1 % (11.5-14.5); White Blood Cell Count 7.2 10^3/uL (4.8-10.8)
[2023-12-22 07:23] LABS: INR 4.24; PT 40.9 Sec (11.4-14.6)
[2023-12-22 08:03] LABS: Blood Urea Nitrogen 9 mg/dl (9-20); Calcium 8.9 mg/dl (8.4-10.2); Carbon Dioxide 23 mmol/L (22-30); Chloride 105 mmol/L (98-107); Estimated Creatinine Clearance 73 ml/min; Glucose 79 mg/dl (70-99); Potassium 3.6 mmol/L (3.5-5.1); Sodium 139 mmol/L (135-145); eGFR > 60.00
--- NOTE | 2023-12-22 09:35 | W.PN.HOSP.TC ---
Today's Communication/Plan
-
see bold
Assessment / Plan
Assessment / Plan
Gen: remains NAD, Awake and alert
Eyes: EOMI, PERRLA, no scleral icterus.
Neck: supple.
CV: remains irreg/irreg, normal S1, loud S2, no m/r/g.
Resp: CTAB, no rales, wheezes, or rhonchi.
Abd: remains +BS, soft, NT, ND
Skin: No rashes.
Neuro: Remains CN 2-12 intact, non-focal.
Psych: calm.
MRI brain: Focal areas of abnormal restricted diffusion involving the posterior aspect of bilateral cerebral hemispheres, as described, appearance compatible with regions of acute to subacute infarction. Bilateral subdural hematomas, subacute to
chronic, left and right. Small hematomas within the inferior frontal lobes, with peripheral hemosiderin rims, which is likely related to previous stress-related injury. There is increased T2 and FLAIR signal within the white matter of the inferior
frontal lobes, which is also related to previous stress-related injury.
MRA head: Mild to moderate motion artifact, limiting evaluation. On MR arteriography, there is no evidence for significant focal stenosis. 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
hypoplasia as normal variation. No evidence of filling defect to suggest thrombus.
CT A/P: Mild distention of the gallbladder with no evidence for calcified gallstones. No CT findings that would be considered highly suggestive of acute cholecystitis. Stable small hepatic cysts present. Small benign dystrophic calcifications within
the right lobe of the liver. Moderate enlargement of the prostate gland, extending into the base of the bladder. Bony degenerative changes
Hypotension/altered mental status:
-On admission, pt AAO x 1, quite alert which appears to be his baseline, without meningeal signs or fever to suggest meningitis/encephalitis. Neurological examination on admission without focal deficits.
-Urinalysis negative
-neuro following
-s/p IVFs
-Holding home antihypertensive medications
-Lactic acidosis, POA, resolved with IVFs
-unclear why BCxs were ordered but will follow (NGTD)
-TSH and fasting cortisol normal
New large region of cytotoxic edema in the left parietal/subdural/posterior temporal lobes and right parietal lobe likely CVA, Small to moderate subacute subdural hematomas:
-MRI brain above, notable for bilateral posterior cerebral areas of acute to subacute infarction, bilateral subacute to chronic subdural hematomas, small hematomas within the inferior lobes likely due to previous stress related injury
-Diagnostic possibilities include large acute ischemic transcortical infarcts, acute cerebral venous infarctions, posterior reversible encephalopathy syndrome or severe infectious/inflammatory cerebritis
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
-Neurochecks/NIH checks per stroke protocol
-Heparin drip stopped 12/20/23AM as INR was therapeutic
-repeat CT Brain 12/24/23
h/o Mechanical AV:
-subtherapeutic INR on admission, now supratherapeutic, holding coumadin
Other problems:
ABHISHEK: prerenal, resolved with IVFs
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
Abdominal pain: CT A/P unremarkable as above
Essential hypertension: Holding home amlodipine, losartan, metoprolol, spironolactone
Dementia: cont citalopram/olanzapine
Hypercholesterolemia: Continue statin
DNR/DNI
Coumadin
Pt's son updated at bedside.
Total time spent on today's encounter was 50 minutes which included time spent in counseling the patient/family regarding diagnosis and treatment plan as listed above, goals of care, and symptom management. Case was discussed with nursing staff,
specialists, and care coordinators/case management. All labs and imaging personally reviewed by me. Remainder the time spent in detailed review of previous records, lab data, imaging, and other medical provider documentation.
Anticipated Discharge: > 48 hours
Subjective/Interval History
-
Date of Service: December 22, 2023
No new complaints.
Objective Data
-
Labs:
Laboratory Results
12/22/23
06:36
WBC 7.2
Hgb 11.4 L
Hct 33.1 L
Plt Count 177
PT 40.9 H
INR 4.24
Sodium 139
Potassium 3.6
Chloride 105
Carbon Dioxide 23
BUN 9
Creatinine 0.9
Glucose 79
Calcium 8.9
Vital Signs:
Vital Signs
Temp Pulse Resp BP Pulse Ox
98.6 F 98 17 125/81 95
12/22/23 07:00 12/22/23 07:00 12/22/23 07:00 12/22/23 07:00 12/22/23 07:00
I&O
12/21/23 12/22/23 12/23/23
06:59 06:59 06:59
Intake Total 6 / 1126 220 / 220
Output Total 800 / 800
Balance 1126 / 1126 -580 / -580
[2023-12-22] MEDS: CELEXA 10 MG PO (09:47)
[2023-12-22] MEDS: ZYPREXA 2.5 MG PO (09:47)
[2023-12-22] MEDS: FLORASTOR 250 MG PO (09:47)
[2023-12-22] MEDS: DESENEX/MITRAZOL/ZEASORB 1 APPLIC TOPICAL ×2 (09:48→20:18)
[2023-12-22 15:00] VITALS: BP 138/78
--- NOTE | 2023-12-22 15:06 | W.PN.NEURO.1 ---
Today's Communication / Plan
-
repeat HCT 12/24
Neuro Assessment/Plan
Assessment
IMPRESSIONS/RECOMMENDATIONS:
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
Traumatic chronic subdural hematomas present
Dementia at baseline
Plan
Heparin drip stopped 12/20 as INR was therapeutic
continue warfarin as replacement for heparin IV
New CAT scan of head December 24, 2023; if that study fails to demonstrate subdural hematomas, would reinitiate aspirin 81 mg daily
Continue rosuvastatin
Rehabilitation evaluations
Medical educational materials to be provided
Will continue to follow peripherally.
Subjective/Objective
Subjective Data
Date of Service: December 22, 2023
still confused
Objective Data
Vital Signs
Temp Pulse Resp BP Pulse Ox
98.6 F 98 17 125/81 95
12/22/23 07:00 12/22/23 07:00 12/22/23 07:00 12/22/23 07:00 12/22/23 07:00
Lab Results
12/22/23 06:36
12/22/23 06:36
PT 40.9 Sec (11.4-14.6) H 12/22/23 06:36
INR 4.24 12/22/23 06:36
APTT 109.2 Sec (23.4-35.0) H 12/20/23 04:14
Sodium 139 mmol/L (135-145) 12/22/23 06:36
Potassium 3.6 mmol/L (3.5-5.1) 12/22/23 06:36
BUN 9 mg/dl (9-20) 12/22/23 06:36
Glucose 79 mg/dl (70-99) 12/22/23 06:36
Calcium 8.9 mg/dl (8.4-10.2) 12/22/23 06:36
Patient Allergies
No Known Allergies Allergy (Verified 12/17/23 15:36)
Physical Exam
-
Attention Span & Concentration: woke him up from a nap--initially lethargic but then more awake, only made eye contact intermittently
Memory: seemed to recognize me (I am his outpatient neurologist.) But unable to state month 'April, May;' did not answer when asked season; followed basic commands; spoke to his nurse; this is not new compared to yesterday
Tremor: Hand Tremor Absent
Involuntary Movement: None
Speech: Dysarthric; Negative Expressive Aphasia or Receptive Aphasia
Cranial Nerve II: Left Eye: Pupillary Reactivity Unremarkable and Pupillary Size Unremarkable
Cranial Nerve II: Right Eye: Pupillary Reactivity Unremarkable and Pupillary Size Unremarkable
Cranial Nerves III, IV, : Extraocular Movement: EOMI
Cranial Nerve VII: Facial Symmetry: Normal Facial Symmetry and Other
Muscle Strength, Overall: Other (5/5 and symmetric throughout)
Pronator Drift: No Drift in Upper Extremities
Touch Sensation: Withdrawal to Pain
[2023-12-22] MEDS: CRESTOR 40 MG PO (17:08)
[2023-12-22 22:24] VITALS: BP 145/70
[2023-12-23 07:00] VITALS: BP 139/83
[2023-12-23 07:09] LABS: INR 4.66; PT 44.1 Sec (11.4-14.6)
[2023-12-23] MEDS: DESENEX/MITRAZOL/ZEASORB 1 APPLIC TOPICAL ×2 (09:25→20:17)
[2023-12-23] MEDS: ZYPREXA 2.5 MG PO (09:26)
[2023-12-23] MEDS: CELEXA 10 MG PO (09:26)
--- NOTE | 2023-12-23 09:46 | W.PN.HOSP.TC ---
Today's Communication/Plan
-
see bold
Assessment / Plan
Assessment / Plan
Gen: continues to remain NAD, Awake and alert
Eyes: EOMI, no scleral icterus.
Neck: supple.
CV: continues to remain irreg/irreg, normal S1, loud S2, no m/r/g.
Resp: CTAB, no rales, wheezes, or rhonchi.
Abd: continues to remain +BS, soft, NT, ND
Skin: No rashes.
Neuro: CN 2-12 intact, non-focal.
Psych: calm.
MRI brain: Focal areas of abnormal restricted diffusion involving the posterior aspect of bilateral cerebral hemispheres, as described, appearance compatible with regions of acute to subacute infarction. Bilateral subdural hematomas, subacute to
chronic, left and right. Small hematomas within the inferior frontal lobes, with peripheral hemosiderin rims, which is likely related to previous stress-related injury. There is increased T2 and FLAIR signal within the white matter of the inferior
frontal lobes, which is also related to previous stress-related injury.
MRA head: Mild to moderate motion artifact, limiting evaluation. On MR arteriography, there is no evidence for significant focal stenosis. 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
hypoplasia as normal variation. No evidence of filling defect to suggest thrombus.
CT A/P: Mild distention of the gallbladder with no evidence for calcified gallstones. No CT findings that would be considered highly suggestive of acute cholecystitis. Stable small hepatic cysts present. Small benign dystrophic calcifications within
the right lobe of the liver. Moderate enlargement of the prostate gland, extending into the base of the bladder. Bony degenerative changes
Hypotension/altered mental status:
-On admission, pt AAO x 1, quite alert which appears to be his baseline, without meningeal signs or fever to suggest meningitis/encephalitis. Neurological examination on admission without focal deficits.
-Urinalysis negative
-neuro following
-s/p IVFs
-Holding home antihypertensive medications
-Lactic acidosis, POA, resolved with IVFs
-unclear why BCxs were ordered but will follow (NGTD)
-TSH and fasting cortisol normal
New large region of cytotoxic edema in the left parietal/subdural/posterior temporal lobes and right parietal lobe likely CVA, Small to moderate subacute subdural hematomas:
-MRI brain above, notable for bilateral posterior cerebral areas of acute to subacute infarction, bilateral subacute to chronic subdural hematomas, small hematomas within the inferior lobes likely due to previous stress related injury
-Diagnostic possibilities include large acute ischemic transcortical infarcts, acute cerebral venous infarctions, posterior reversible encephalopathy syndrome or severe infectious/inflammatory cerebritis
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
-Neurochecks/NIH checks per stroke protocol
-Heparin drip stopped 12/20/23AM as INR was therapeutic
-repeat CT Brain 12/24/23
h/o Mechanical AV:
-subtherapeutic INR on admission, now supratherapeutic, holding coumadin. No need to reverse INR at this moment.
Other problems:
ABHISHEK: prerenal, resolved with IVFs
Scalp laceration due to recent fall: Started on doxycycline 2 to 3 days [facility]
Abdominal pain: CT A/P unremarkable as above
Essential hypertension: Holding home amlodipine, losartan, metoprolol, spironolactone
Dementia: cont citalopram/olanzapine
Hypercholesterolemia: Continue statin
DNR/DNI
Coumadin
Pt's son and other family updated at bedside.
Anticipated Discharge: Within 24 hours
Subjective/Interval History
-
Date of Service: December 23, 2023
Pt without new complaints.
Objective Data
-
Labs:
Laboratory Results
12/23/23
06:09
PT 44.1 H
INR 4.66
Vital Signs:
Vital Signs
Temp Pulse Resp BP Pulse Ox
98.6 F 94 17 139/83 100
12/23/23 07:00 12/23/23 07:00 12/23/23 07:00 12/23/23 07:00 12/23/23 07:00
I&O
12/22/23 12/23/23 12/24/23
06:59 06:59 06:59
Intake Total 220 / 220 570 / 570
Output Total 800 / 800
Balance -580 / -580 570 / 570
--- NOTE | 2023-12-23 13:41 | PTCARENOTE ---
Pt with very poor appetite this shift. Son at bedside and witnessed Pt refusing assistance with eating breakfast. Pt had one small bite of a banana and sip of Ensure then stated ' that's enough'.
[2023-12-23 15:00] VITALS: BP 139/72
[2023-12-23 16:49] VITALS: BP 168/98
[2023-12-23] MEDS: CRESTOR 40 MG PO (18:28)
[2023-12-23 18:48] VITALS: BP 131/72
[2023-12-24 00:48] VITALS: BP 135/65
[2023-12-24 06:34] LABS: PT 48.5 Sec (11.4-14.6)
[2023-12-24 06:42] LABS: INR 5.25
[2023-12-24 07:00] VITALS: BP 143/79
--- NOTE | 2023-12-24 08:11 | W.PN.NEURO.1 ---
Today's Communication / Plan
-
-CT head noted, no changes to antithrombotics recommended
-Would remain off aspirin given bleeding risks of subdural hematomas
-Continue to follow INR and coumadin as appropriate for anticoagulation with mechanical heart valve
-Minimize sedating medications
-Discussed with consideration for hospice given disabling stroke and continued high risks of bleeding versus thrombosis given ischemic strokes, subdural hematomas, mechanical heart valve, existing dementia
Will follow peripherally call with questions and concerns
Neuro Assessment/Plan
Assessment
IMPRESSIONS/RECOMMENDATIONS:
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
Traumatic chronic subdural hematomas present
Dementia at baseline
Plan
Heparin drip stopped 12/20 as INR was therapeutic
continue warfarin as replacement for heparin IV
New CAT scan of head December 24, 2023; if that study fails to demonstrate subdural hematomas, would reinitiate aspirin 81 mg daily
Continue rosuvastatin
Rehabilitation evaluations
Medical educational materials to be provided
Will continue to follow peripherally.
Subjective/Objective
Subjective Data
Date of Service: December 24, 2023
No acute events, patient denies headache or chest pain
Objective Data
Vital Signs
Temp Pulse Resp BP Pulse Ox
98.7 F 94 16 143/79 97
12/24/23 07:00 12/24/23 07:00 12/24/23 07:00 12/24/23 07:00 12/24/23 07:00
Lab Results
12/22/23 06:36
12/22/23 06:36
PT 48.5 Sec (11.4-14.6) H 12/24/23 05:51
INR 5.25 H* 12/24/23 05:51
APTT 109.2 Sec (23.4-35.0) H 12/20/23 04:14
Sodium 139 mmol/L (135-145) 12/22/23 06:36
Potassium 3.6 mmol/L (3.5-5.1) 12/22/23 06:36
BUN 9 mg/dl (9-20) 12/22/23 06:36
Glucose 79 mg/dl (70-99) 12/22/23 06:36
Calcium 8.9 mg/dl (8.4-10.2) 12/22/23 06:36
Patient Allergies
No Known Allergies Allergy (Verified 12/17/23 15:36)
Review of Systems
-
History Source: Patient
All other systems: Reviewed and negative
Constitutional: No Symptoms
EENT: No Symptoms Reported
Respiratory: No Symptoms
Cardiac: No Symptoms
Abdomen/GI: No Symptoms
Genitourinary: No Symptoms
Musculoskeletal: No Symptoms
Skin: No Symptoms
Neuro: Negative Weakness or Speech Problem
Endocrine: No Symptoms
Hematologic / Lymphatic: No Symptoms
Allergy / Immunology: No Symptoms
Physical Exam
-
General: Comfortable and Appears Chronically Ill
Eyes: No Ptosis
HEENT: Normocephalic
Neck: No Bruits Bilaterally
Respiratory: Clear to Auscultation
Cardiac: Regular Rhythm
GI: Normal Bowel Sounds
Skin: Unremarkable
Extremities: No Clubbing
Psych: Confused and Apparent Dementia; Negative Agitated or Intact Judgement/Insight
Extended Neurological Exam
Mood & Affect: Mood Unremarkable and Affect Unremarkable
Attention Span & Concentration: Mild Difficulty with 2 Step Request and Other (Difficulty with complex commands cannot name days of week or months, will identify simple colors and objects, inattentive, awakens easily, calculation impaired)
Memory: Reduced
Tremor: Hand Tremor Absent
Involuntary Movement: None
Speech: Negative Expressive Aphasia, Receptive Aphasia or Dysarthric
Cranial Nerve II: Left Eye: Pupillary Reactivity Unremarkable, Pupillary Size Unremarkable and Visual Leung Grossly Intact
Cranial Nerve II: Right Eye: Pupillary Reactivity Unremarkable, Pupillary Size Unremarkable and Visual Leung Grossly Intact
Cranial Nerves III, IV, : Extraocular Movement: Extraocular Movement Full in all Directions
Muscle Strength, Overall: Full Throughout
Touch Sensation: Unremarkable
Data Reviewed
-
CT Head: Report Reviewed and Image Reviewed
MRI Head: Report Reviewed and Image Reviewed
[2023-12-24] MEDS: CELEXA 10 MG PO (08:29)
[2023-12-24] MEDS: DESENEX/MITRAZOL/ZEASORB 1 APPLIC TOPICAL ×2 (08:29→19:43)
[2023-12-24] MEDS: ZYPREXA 2.5 MG PO (08:29)
--- NOTE | 2023-12-24 13:34 | W.PN.HOSP.TC ---
Addendum entered and electronically signed by James Sanon MD 12/24/23 18:25:
Moderate protein calorie malnutrition
Original Note:
Today's Communication/Plan
-
arrange hospice @ SNF after family discussion
CM aware
Assessment / Plan
Assessment / Plan
MRI brain: Focal areas of abnormal restricted diffusion involving the posterior aspect of bilateral cerebral hemispheres, as described, appearance compatible with regions of acute to subacute infarction. Bilateral subdural hematomas, subacute to
chronic, left and right. Small hematomas within the inferior frontal lobes, with peripheral hemosiderin rims, which is likely related to previous stress-related injury. There is increased T2 and FLAIR signal within the white matter of the inferior
frontal lobes, which is also related to previous stress-related injury.
MRA head: Mild to moderate motion artifact, limiting evaluation. On MR arteriography, there is no evidence for significant focal stenosis. 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
hypoplasia as normal variation. No evidence of filling defect to suggest thrombus.
CT A/P: Mild distention of the gallbladder with no evidence for calcified gallstones. No CT findings that would be considered highly suggestive of acute cholecystitis. Stable small hepatic cysts present. Small benign dystrophic calcifications within
the right lobe of the liver. Moderate enlargement of the prostate gland, extending into the base of the bladder. Bony degenerative changes
Assessment:
Hypotension/altered mental status:
-On admission, pt AAO x 1, quite alert which appears to be his baseline, without meningeal signs or fever to suggest meningitis/encephalitis. Neurological examination on admission without focal deficits.
-Urinalysis negative
-neuro following
-s/p IVFs
-Holding home antihypertensive medications
-Lactic acidosis, POA, resolved with IVFs
-BCX NGTD
-TSH and fasting cortisol normal
New large region of cytotoxic edema in the left parietal/subdural/posterior temporal lobes and right parietal lobe likely CVA, Small to moderate subacute subdural hematomas:
-MRI brain above, notable for bilateral posterior cerebral areas of acute to subacute infarction, bilateral subacute to chronic subdural hematomas, small hematomas within the inferior lobes likely due to previous stress related injury
-Diagnostic possibilities include large acute ischemic transcortical infarcts, acute cerebral venous infarctions, posterior reversible encephalopathy syndrome or severe infectious/inflammatory cerebritis
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
-Neuro-checks/NIH checks per stroke protocol
- repeat CT 12/24/23: stable
- d/w family/Neurology and family opts for hospice
h/o Mechanical AV:
-subtherapeutic INR on admission, now supratherapeutic, holding Coumadin. No need to reverse INR at this moment.
ABHISHEK: prerenal, resolved with IVFs
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
Abdominal pain: CT A/P unremarkable as above
Essential hypertension: Holding home amlodipine, losartan, metoprolol, spironolactone
Dementia: cont citalopram/olanzapine
Hypercholesterolemia: Continue statin
DVT ppx: Coumadin
Code: DNR/DNI
Anticipated Discharge: 24 - 48 hours
Subjective/Interval History
-
Date of Service: December 24, 2023
no acute overnight events
patient denies most things, and is not eating much per at bedside
Objective Data
-
Labs:
Laboratory Results
12/24/23
05:51
PT 48.5 H
INR 5.25 H*
Vital Signs:
Vital Signs
Temp Pulse Resp BP Pulse Ox
98.7 F 94 16 143/79 97
12/24/23 07:00 12/24/23 07:00 12/24/23 07:00 12/24/23 07:00 12/24/23 07:00
I&O
12/23/23 12/24/23 12/25/23
06:59 06:59 06:59
Intake Total 570 / 570 120 / 120
Balance 570 / 570 120 / 120
Physical Exam
-
General: No Apparent Distress
HEENT: Normocephalic and Atraumatic
Respiratory: Negative Wheezes
Cardiac: Regular Rhythm and S1/S2
GI: Soft
Psych: Calm
Data Reviewed
-
Total Time Spent with Patient (in minutes): 41
Labs: Labs Reviewed by me
--- NOTE | 2023-12-24 14:49 | CM ---
Reviewed chart, spoke with patient's son who was in room, Hal, who stated that patient's who is also inpatient is transferring to an apartment at [facility], and he would like for patient to transfer to [facility] or [place] or [place] if [facility] can't accommodate as
that is where he was residing prior to admissions. Will send referrals to both.
Plan: Case management will continue to follow and assist with discharge planning/hopeful transfer to [facility] or [place] upon medical clearance.
--- NOTE | 2023-12-24 15:00 | PN.CDI ---
CDI
- -
CDI:
Physician Documentation Request
Admit Date: 12/17/23 18:21
Dear Doctor Talita,
Patient admitted with bilateral embolic infarcts.
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
Please provide in your note the diagnosis associated with the above nutritional findings:
Moderate protein calorie malnutrition
Other (please specify)
[place] Criteria ([facility] Hospitalist 2017)
2 or more criteria must be present for either
non severe or severe malnutrition
Note that the criteria differs related to the
presence of an acute or chronic illness
Chronic Illness
Energy Intake Non Severe: <75% for >1 month
Severe: <75% for >1 month
Weight Loss Non Severe: 5% over 1 month
7.5% over 3 months
10% over 6 months
20% over 1 year
Severe: >5% over 1 month
>7.5% over 3 months
>10% over 6 months
>20% over 1 year
Body Fat Non Severe: Mild Loss
Severe: Severe Loss
Muscle Mass Non Severe: Mild Loss
Severe: Severe Loss
Fluid Accumulation Non Severe: Mild Accumulation
Severe: Moderate to severe
accumulation
Reduced Sales And Service Representative Strength Non Severe: N/A
Severe: Measurably reduced
Use of terms such as suspected, likely, concern for, or probable (associated with a specific diagnosis that is being evaluated, monitored, or treated as if it exists) are acceptable and can be coded in the inpatient setting, when documented at the
time of discharge.
Thank you,
Jazmin UMANZORN,RN,CCDS
CDI Specialist
Available via [place] text
Please use your independent medical judgment in providing your response.
[2023-12-24 15:09] VITALS: BP 171/85
[2023-12-24] MEDS: CRESTOR 40 MG PO (17:44)
[2023-12-24 23:07] VITALS: BP 124/51
[2023-12-25 06:45] LABS: INR 4.94; PT 46.2 Sec (11.4-14.6)
[2023-12-25 07:28] VITALS: BP 145/75
[2023-12-25] MEDS: ZYPREXA 2.5 MG PO (07:50)
[2023-12-25] MEDS: CELEXA 10 MG PO (07:50)
[2023-12-25] MEDS: DESENEX/MITRAZOL/ZEASORB 1 APPLIC TOPICAL ×2 (07:51→21:13)
--- NOTE | 2023-12-25 09:05 | PTOTSP ---
Reviewed chart and noted plans for hospice. PT will sign off.
--- NOTE | 2023-12-25 11:58 | PTOTSP ---
Per chart review, plan is to transition to hospice level of care. Will sign off at this time. Please reconsult if goals of care change.
--- NOTE | 2023-12-25 14:31 | CM ---
Spoke with patient's and daughter who were at bedside. Spoke with attending who stated that he will put in an order for hospice. Spoke with Alexa by hospice liason who stated that she will call patient's and daughter. Patient's
being discharged.
Placed a call to [facility] and spoke with Velvet who stated that she may not have a bed until the end of the week. Placed a call to [facility] in admissions at [place] to determine bed availability however had to leave a voice mail.
Goal is to have patient transfer to one of these facilities, upon medical clearance on hospice. Will await return call from Idania in admissions.
Plan: Case management will continue to follow and assist with discharge planning. Patient was from [place] so if no bed available at [facility] patient will have to return to [place].
--- NOTE | 2023-12-25 14:55 | W.PN.HOSP.TC ---
Today's Communication/Plan
-
Met with dgt Kymberly and CM, will proceed with Hospice
Assessment / Plan
Assessment / Plan
MRI brain: Focal areas of abnormal restricted diffusion involving the posterior aspect of bilateral cerebral hemispheres, as described, appearance compatible with regions of acute to subacute infarction. Bilateral subdural hematomas, subacute to
chronic, left and right. Small hematomas within the inferior frontal lobes, with peripheral hemosiderin rims, which is likely related to previous stress-related injury. There is increased T2 and FLAIR signal within the white matter of the inferior
frontal lobes, which is also related to previous stress-related injury.
MRA head: Mild to moderate motion artifact, limiting evaluation. On MR arteriography, there is no evidence for significant focal stenosis. 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
hypoplasia as normal variation. No evidence of filling defect to suggest thrombus.
CT A/P: Mild distention of the gallbladder with no evidence for calcified gallstones. No CT findings that would be considered highly suggestive of acute cholecystitis. Stable small hepatic cysts present. Small benign dystrophic calcifications within
the right lobe of the liver. Moderate enlargement of the prostate gland, extending into the base of the bladder. Bony degenerative changes
Assessment:
Hypotension/altered mental status:
-On admission, pt AAO x 1, quite alert which appears to be his baseline, without meningeal signs or fever to suggest meningitis/encephalitis. Neurological examination on admission without focal deficits.
-Urinalysis negative
-neuro following
-s/p IVFs
-Holding home antihypertensive medications
-Lactic acidosis, POA, resolved with IVFs
-BCX NGTD
-TSH and fasting cortisol normal
New large region of cytotoxic edema in the left parietal/subdural/posterior temporal lobes and right parietal lobe likely CVA, Small to moderate subacute subdural hematomas:
-MRI brain above, notable for bilateral posterior cerebral areas of acute to subacute infarction, bilateral subacute to chronic subdural hematomas, small hematomas within the inferior lobes likely due to previous stress related injury
-Diagnostic possibilities include large acute ischemic transcortical infarcts, acute cerebral venous infarctions, posterior reversible encephalopathy syndrome or severe infectious/inflammatory cerebritis
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
-Neuro-checks/NIH checks per stroke protocol
- repeat CT 12/24/23: stable
- d/w family/Neurology and family opts for hospice
h/o Mechanical AV:
-subtherapeutic INR on admission, now supratherapeutic, holding Coumadin. No need to reverse INR at this moment.
INR 4.94, coumadin on hold
ABHISHEK: prerenal, resolved with IVFs
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
Abdominal pain: CT A/P unremarkable as above
Essential hypertension: Holding home amlodipine, losartan, metoprolol, spironolactone
Dementia: cont citalopram/olanzapine
Hypercholesterolemia: Continue statin
Hospice consult, as per CM, plan is to dc to [facility] initially then potential eventual transfer to [facility], where pt will be residing.
DVT ppx: Coumadin
Code: DNR/DNI
Anticipated Discharge: 24 - 48 hours
Subjective/Interval History
-
Date of Service: December 25, 2023
Met with karley, Kymberly, GEORGE and in room. Decision made to proceed with Hospice
Objective Data
-
Labs:
Laboratory Results
12/25/23
05:51
PT 46.2 H
INR 4.94
Vital Signs:
Vital Signs
Temp Pulse Resp BP Pulse Ox
98.8 F 91 18 145/75 92
12/25/23 07:28 12/25/23 07:28 12/25/23 07:28 12/25/23 07:28 12/25/23 07:28
I&O
02/26/24 02/27/24 02/28/24
06:59 06:59 06:59
Intake Total 120 / 120 570 / 570
Output Total 100 / 100
Balance 120 / 120 470 / 470
Review of Systems
-
History Source: Family and Coordinated Provider
Constitutional: Denies Fever
Respiratory: Reports No Symptoms
Cardiac: Reports No Symptoms
Genitourinary: Reports No Symptoms
Physical Exam
-
General: No Apparent Distress
HEENT: Normocephalic and Atraumatic
Respiratory: Negative Wheezes
Cardiac: Regular Rhythm and S1/S2
GI: Soft
Neuro: Other (noncommunicative)
Psych: Calm
[2023-12-25 15:00] VITALS: BP 131/63
--- NOTE | 2023-12-25 17:01 | HOSPNOTE ---
Spoke to family, they are in agreement with hospice. Placement in process. Hospice will continue to follow.
[2023-12-25] MEDS: CRESTOR 40 MG PO (17:19)
[2023-12-25 23:45] VITALS: BP 104/58
[2023-12-26 07:07] LABS: INR 4.08; PT 40.3 Sec (11.4-14.6)
[2023-12-26 07:36] VITALS: BP 110/61
[2023-12-26] MEDS: DESENEX/MITRAZOL/ZEASORB 1 APPLIC TOPICAL (08:21)
[2023-12-26] MEDS: CELEXA 10 MG PO (08:21)
[2023-12-26] MEDS: ZYPREXA 2.5 MG PO (08:21)
--- NOTE | 2023-12-26 10:04 | CM ---
Addendum entered by THONG Ayers 12/26/23 13:53:
P/U is 14:30. Attending updated.
Addendum entered by THONG Ayers 12/26/23 11:04:
All forms completed and provided to 3 [employer] educator. Attending stated that he will be up to sign DNR form.
Original Note:
Received call from [facility] liason who stated that she spoke with Idania in admissions at [place] who confirmed that she can take patient. Family in agreement per [facility].
TT attending who stated that he will attempt to see patient this morning in hopes to clear as long as he is stable.
Placed a call to Idania in admissions at [place] who confirmed that she can accept patient-Report [phone] and fax [phone]. Will complete OOHDNR form along with transfer sheet and medical necessity form.
Plan: Case management will continue to follow and assist with discharge planning. Transfer to [place] upon medical clearance.
--- NOTE | 2023-12-26 11:32 | W.PN.HOSP.TC ---
Addendum entered and electronically signed by James Sanon MD 12/26/23 14:13:
Traumatic subdural hematomas from prior fall prior to latest admission
Original Note:
Today's Communication/Plan
-
dc to SNF on hospice
Assessment / Plan
Assessment / Plan
MRI brain: Focal areas of abnormal restricted diffusion involving the posterior aspect of bilateral cerebral hemispheres, as described, appearance compatible with regions of acute to subacute infarction. Bilateral subdural hematomas, subacute to
chronic, left and right. Small hematomas within the inferior frontal lobes, with peripheral hemosiderin rims, which is likely related to previous stress-related injury. There is increased T2 and FLAIR signal within the white matter of the inferior
frontal lobes, which is also related to previous stress-related injury.
MRA head: Mild to moderate motion artifact, limiting evaluation. On MR arteriography, there is no evidence for significant focal stenosis. 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
hypoplasia as normal variation. No evidence of filling defect to suggest thrombus.
CT A/P: Mild distention of the gallbladder with no evidence for calcified gallstones. No CT findings that would be considered highly suggestive of acute cholecystitis. Stable small hepatic cysts present. Small benign dystrophic calcifications within
the right lobe of the liver. Moderate enlargement of the prostate gland, extending into the base of the bladder. Bony degenerative changes
Assessment:
Hypotension/altered mental status:
-On admission, pt AAO x 1, quite alert which appears to be his baseline, without meningeal signs or fever to suggest meningitis/encephalitis. Neurological examination on admission without focal deficits.
-Urinalysis negative
-neuro following
-s/p IVFs
-Holding home antihypertensive medications
-Lactic acidosis, POA, resolved with IVFs
-BCX NGTD
-TSH and fasting cortisol normal
New large region of cytotoxic edema in the left parietal/subdural/posterior temporal lobes and right parietal lobe likely CVA, Small to moderate subacute subdural hematomas:
-MRI brain above, notable for bilateral posterior cerebral areas of acute to subacute infarction, bilateral subacute to chronic subdural hematomas, small hematomas within the inferior lobes likely due to previous stress related injury
-Diagnostic possibilities include large acute ischemic transcortical infarcts, acute cerebral venous infarctions, posterior reversible encephalopathy syndrome or severe infectious/inflammatory cerebritis
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
-Neuro-checks/NIH checks per stroke protocol
- repeat CT 12/24/23: stable
- d/w family/Neurology and family opts for hospice
h/o Mechanical AV:
-subtherapeutic INR on admission, now supratherapeutic, holding Coumadin. No need to reverse INR at this moment.
INR 4.94, coumadin on hold
ABHISHEK: prerenal, resolved with IVFs
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
Abdominal pain: CT A/P unremarkable as above
Essential hypertension: Holding home amlodipine, losartan, metoprolol, spironolactone
Dementia: cont citalopram/olanzapine
Hypercholesterolemia: Continue statin
Hospice consult, as per CM, plan is to dc to [facility] initially then potential eventual transfer to [facility], where pt will be residing.
DVT ppx: Coumadin
Code: DNR/DNI
More than 30 minutes spent in discharge including
Final examination of the patient
Summarizing hospital stay
Instructions for continuing care to all relevant caregivers
Preparation of discharge records, prescriptions, and referral forms
Total time spent (in minutes):41
Anticipated Discharge: Today
Subjective/Interval History
-
Date of Service: December 26, 2023
no overnight issues
family has agreed to hospice
Objective Data
-
Labs:
Laboratory Results
12/26/23
06:19
PT 40.3 H
INR 4.08
Vital Signs:
Vital Signs
Temp Pulse Resp BP Pulse Ox
98.9 F 115 17 110/61 95
12/26/23 07:36 12/26/23 07:36 12/26/23 07:36 12/26/23 07:36 12/26/23 08:15
I&O
12/25/23 12/26/23 12/27/23
06:59 06:59 06:59
Intake Total 570 / 570 120 / 120
Output Total 100 / 100
Balance 470 / 470 120 / 120
Physical Exam
-
General: No Apparent Distress
HEENT: Normocephalic
Respiratory: Negative Wheezes
Cardiac: Regular Rhythm
GI: Soft
Neuro: Awake
Psych: Calm
Data Reviewed
-
Total Time Spent with Patient (in minutes): 41
Labs: Labs Reviewed by me
--- NOTE | 2023-12-26 11:35 | W.DS.TRANS ---
DC Summary - Sound Tester
-
Discharge Instructions:
Discharge Diagnosis/Procedures New large region of cytotoxic edema in the left
parietal/subdural/posterior temporal lobes and
right parietal lobe likely CVA, Small to
moderate subacute subdural hematomas
Diet Regular,As tolerated
Activity As tolerated,With assistance
Other Services Hospice
Instructions:
Stand-Alone Forms:
Changes to Home Medications: No
Discharge Medications:
DC Medications w/original date entered in [employer]
acetaminophen 325 mg tablet (Tylenol) 650 mg PO Q4HPRN PRN mild pain/fever>100.4 02/16/23
citalopram 10 mg tablet (Celexa) 10 mg PO DAILY@0830 Mental Health/Anxiety 02/16/23
donepezil 23 mg tablet 23 mg PO DAILY@0830 Neurological Condition 02/16/23
bisacodyl 10 mg rectal suppository (Dulcolax (bisacodyl)) 10 mg IA DAILYPRN PRN q 3 days when no BM and MOM/lactulose ineffective 12/08/23
losartan 100 mg tablet 100 mg PO DAILY@0830 blood pressure 12/08/23
magnesium hydroxide 400 mg/5 mL oral suspension (Milk of Magnesia) 2,400 mg PO HSPRN PRN CONSTIPATION 12/08/23
olanzapine 2.5 mg tablet 2.5 mg PO DAILY@0830 Mental Health/Anxiety 12/17/23
Home Medication Changes
stop blood thinners and most BP meds except Losartan
Pending Results: No
Total time spent discharging patient (in min): 41
--- NOTE | 2023-12-26 11:41 | HOSPNOTE ---
Patient will be going to [place] on hospice services and transport is scheduled for 2:30pm. I called and left a message with daughter.
--- NOTE | 2023-12-26 13:24 | PN.CDI ---
CDI
- -
CDI:
Physician Documentation Request
Admit Date: 12/17/23 18:21
Dear Doctor Talita,
Patient admitted with CVA.
12/26 PN, 'Small to moderate subacute subdural hematomas....bilateral subacute to chronic subdural hematomas, small hematomas within the inferior lobes likely due to previous stress related injury'
Please clarify in your note the likely etiology of the documented subacute subdural hematomas:
Non- traumatic subdural hematomas
Traumatic subdural hematomas
Other
Use of terms such as suspected, likely, concern for, or probable (associated with a specific diagnosis that is being evaluated, monitored, or treated as if it exists) are acceptable and can be coded in the inpatient setting, when documented at the
time of discharge.
Thank you,
Jazmin DELGADO,RN,CCDS
CDI Specialist
Available via [place] text
Please use your independent medical judgment in providing your response.
== END 2023-12-26 14:55 | DRG 64 ==
LOC: 3 WEST ACU 18:21
PROVIDERS: Internal Medicine; ADMITTING PHYSICIAN Hospitalist; ATTENDING PHYSICIAN Internal Medicine; CONSULT PHYSICIAN Physical Medicine & Rehabilitation; CONSULT PHYSICIAN Student in an Organized Health Care Education/Training Program; EMERGENCY PHYSICIAN Emergency Medicine; OTHER PHYSICIAN Internal Medicine Critical Care Medicine
DX: I63.9 Cerebral infarction, unspecified (principal); G93.6 Cerebral edema; S06.5XAA Traumatic subdural hemorrhage with loss of consciousness status unknown, initial encounter; N17.9 Acute kidney failure, unspecified; E44.0 Moderate protein-calorie malnutrition; R10.9 Unspecified abdominal pain; I10 Essential (primary) hypertension; E78.00 Pure hypercholesterolemia, unspecified; Z66 Do not resuscitate; Z79.01 Long term (current) use of anticoagulants; Z79.82 Long term (current) use of aspirin; Z95.2 Presence of prosthetic heart valve; W19.XXXA Unspecified fall, initial encounter; R79.1 Abnormal coagulation profile
CPT/HCPCS: 51701; 70450; 70544; 70551; 71045; 74176; 80048; 80053; 81003; 82533; 82962; 83605; 83735; 84443; 85025; 85027; 85610; 85730; 87040; 87070; 87502; 87811; 92523; 92526; 92610; 93005; 96360; 97163; 97167; 99285